=== PATIENT | female | born 1945 | race Caucasian/White ===

== ENCOUNTER 2018-10-08 15:32 | Inpatient (IN) | payer OTHER, MEDICARE ==
--- NOTE | 2018-10-08 15:41 | EDPHY ---
H & P Time Seen by Provider: 10/08/18 15:38 HPI/ROS: Chief complaint. Nausea vomiting diarrhea, abdominal pain HPI. Patient is 73-year-old female here by EMS with 9 day history of diarrhea. Decreased appetite. He many episodes of diarrhea daily not containing blood. Vomiting x1 over the 9 days. She had not had recent antibiotics. No recent travel or sick contacts. She has bilateral crampy low abdominal pain. No fever , chest pain, shortness of breath. Decreased urination. In April she was seen in a hospital in [place] and she was told she had a growth in her abdomen but does not know what was or whether it required follow-up for further evaluation. ROS 10 systems were reviewed and negative with the exception of the elements mentioned in the history of present illness Past Medical/Surgical History: Hysterectomy, knee surgery, depression, anxiety Social History: Single, nonsmoker, no alcohol Physical Exam: General Appearance: Alert well-developed female mild distress vital signs are stable Eyes: Pupils equal and round no pallor or injection. ENT, Mouth: Mucous membranes are dry. Respiratory: There are no retractions, lungs are clear to auscultation. Cardiovascular: Regular rate and rhythm. Gastrointestinal: Abdomen is soft is tender in both lower quadrants. No masses. Normal bowel sounds Neurological: Awake and alert, sensory and motor exams grossly normal. Skin: Warm and dry, no rashes. Musculoskeletal: Neck is supple nontender. Extremities symmetrical, full range of motion. Psychiatric: Patient is oriented X 3, there is no agitation. Constitutional: Initial Vital Signs Temperature (C) 36.6 C 10/08/18 15:40 Heart Rate 63 10/08/18 15:40 Respiratory Rate 18 10/08/18 15:40 Blood Pressure 110/68 10/08/18 15:40 O2 Sat (%) 97 10/08/18 15:40 O2 Delivery Mode Room Air Allergies/Adverse Reactions: No Known Allergies Allergy (Unverified 10/08/18 15:40) Medical Decision Making - Diagnostics Imaging Results: Imaging Impressions Abdomen/Pelvis CT 10/08/18 16:01 Impression: 1. Cecal and hepatic flexure focal thickening are noted and could represent occult malignancy. Has this patient had recent colonoscopy? 2. Edematous fat around the rectosigmoid junction raises the possibility of colitis. There is no evidence for colon obstruction. 3. Diverticulosis without evidence of diverticulitis. 4. Unusual density adjacent to a right upper quadrant cholecystectomy clip, likely of no clinical significance. Results discussed with Dr. Shaka Weaver. General information for patients regarding this examination can be found at [email or web address]. If you have questions or comments about this report, please contact me at [phone] (hospital) or [phone] (cell). Procedures: IV normal saline ED Course/Re-evaluation: Re-evaluation at 6:10 p.m. Patient is stable. She and I discussed laboratory evaluation imaging studies. We discussed treatment plan including recommendation for admission. She expresses understanding and agreement. Patient tells me she has never had a colonoscopy. She is not aware she has had any kidney problems in the past. Differential Diagnosis: Acute renal failure after diarrhea. Unknown baseline status as this is her 1st visit. CT worrisome for colon cancer. No previous colonoscopy - Data Points Laboratory Results: Laboratory Results 10/08/18 16:18 12 16:18 10/08/18 10/08/18 16:18 16:18 WBC 13.92 10^3/uL H 10^3/uL (3.80-9.50) RBC 5.01 10^6/uL 10^6/uL (4.18-5.33) Hgb 15.1 g/dL g/dL (12.6-16.3) Hct 44.8 % % (38.0-47.0) MCV 89.4 fL fL (81.5-99.8) MCH 30.1 pg pg (27.9-34.1) MCHC 33.7 g/dL g/dL (32.4-36.7) RDW 14.5 % % (11.5-15.2) Plt Count 341 10^3/uL 10^3/uL (150-400) MPV 10.7 fL fL (8.7-11.7) Neut % (Auto) 62.6 % % (39.3-74.2) Lymph % (Auto) 30.2 % % (15.0-45.0) [place] % (Auto) 5.9 % % (4.5-13.0) Eos % (Auto) 0.3 % L % (0.6-7.6) Baso % (Auto) 0.4 % % (0.3-1.7) Nucleat RBC Rel Count 0.0 % % (0.0-0.2) Absolute Neuts (auto) 8.71 10^3/uL H 10^3/uL (1.70-6.50) Absolute Lymphs (auto) 4.20 10^3/uL H 10^3/uL (1.00-3.00) Absolute Monos (auto) 0.82 10^3/uL H 10^3/uL (0.30-0.80) Absolute Eos (auto) 0.04 10^3/uL 10^3/uL (0.03-0.40) Absolute Basos (auto) 0.06 10^3/uL 10^3/uL (0.02-0.10) Absolute Nucleated RBC 0.00 10^3/uL 10^3/uL (0-0.01) Immature Gran % 0.6 % % (0.0-1.1) Immature Gran # 0.09 10^3/uL 10^3/uL (0.00-0.10) Sodium 134 mEq/L L mEq/L (135-145) Potassium 5.4 mEq/L H mEq/L (3.5-5.2) Chloride 102 mEq/L mEq/L (97-110) Carbon Dioxide 14 mEq/l L mEq/l (22-31) Anion Gap 18 mEq/L H mEq/L (6-14) BUN 47 mg/dL H mg/dL (7-23) Creatinine 3.8 mg/dL H mg/dL (0.6-1.0) Estimated GFR 12 Glucose 104 mg/dL H mg/dL (70-100) Calcium 9.7 mg/dL mg/dL (8.5-10.4) Total Bilirubin 0.5 mg/dL mg/dL (0.1-1.4) Conjugated Bilirubin 0.2 mg/dL mg/dL (0.0-0.5) Unconjugated Bilirubin 0.3 mg/dL mg/dL (0.0-1.1) AST 14 IU/L IU/L (14-46) ALT 23 IU/L IU/L (9-52) Alkaline Phosphatase 101 IU/L IU/L (38-126) Total Protein 8.1 g/dL g/dL (6.3-8.2) Albumin 4.6 g/dL g/dL (3.5-5.0) Medications Given: Discontinued Medications Sodium Chloride (Ns) 1,000 mls @ 0 mls/hr IV EDNOW ONE; Wide Open PRN Reason: Protocol Stop: 10/08/18 16:02 Last Admin: 10/08/18 16:16 Dose: 1,000 mls Departure - Departure Disposition: [facility] In[facility] Acute Clinical Impression: Renal failure Qualifiers: Renal failure chronicity: unspecified chronicity Qualified Code(s): N19 - Unspecified kidney failure Condition: Fair Referrals: Patient,NotPresent [Unknown] - As per Instructions
[2018-10-08] MEDS ORDERED: NS 1,000 ML IV ONE ×2 (16:01→17:00)
[2018-10-08 16:41] LABS: PLATELET COUNT 341 10^3/uL (150-400)
--- NOTE | 2018-10-08 18:40 | PDGENHP ---
History and Physical - Chief Complaint Diarrhea - History of Present Illness This is a 73-year-old female moved [place] 6 weeks ago who presents to the emergency department with 9 days of diarrhea. She states she is having bowel movements every 2 hr. She denies any blood in her stool. She denies any emesis. She has had some subjective weight loss. Appetite is described as very poor. History Information - Allergies/Home Medication List Allergies/Adverse Reactions: No Known Allergies Allergy (Unverified 10/08/18 15:40) Home Medications: Aspirin [Aspirin 325 mg (*)] 325 mg PO DAILY 10/08/18 [Last Taken 10/01/18] DULoxetine [Cymbalta 30 MG (*)] 30 mg PO DAILY 10/08/18 [Last Taken 10/08/18] traZODone [traZODONE 100MG (*)] 100 mg PO HS 10/08/18 [Last Taken 09/17/18] I have personally reviewed and updated: family history, medical history, social history, surgical history - Past Medical History no pertinent PMH - Surgical History Additional surgical history: Partial hysterectomy - Family History Additional family history: Father had colon cancer in his 60s of coronary artery disease. Mother had metastatic breast cancer - Social History Smoking Status: Light smoker Alcohol Use: None Drug Use: None Review of Systems Review of Systems: ROS: 10pt was reviewed & negative except for what was stated in HPI & below Physical Exam Physical Exam: Temp Pulse Resp BP Pulse Ox 36.6 C 44 L 16 113/60 98 10/08/18 15:40 10/08/18 17:28 10/08/18 17:28 10/08/18 17:28 10/08/18 17:28 Constitutional: no apparent distress, appears nourished, not in pain Eyes: PERRL, anicteric sclera, EOMI Ears, Nose, Mouth, Throat: hearing normal, ears appear normal, no oral mucosal ulcers, other (Dry oral mucosa) Cardiovascular: regular rate and rhythym, no murmur, rub, or gallop, No edema Respiratory: no respiratory distress, no rales or rhonchi, clear to auscultation Gastrointestinal: normoactive bowel sounds, soft, non-tender abdomen, no palpable masses, No guarding, No rebound Genitourinary: no bladder fullness, no bladder tenderness Skin: warm, normal color Musculoskeletal: full muscle strength, no muscle tenderness, normal joint ROM, no joint effusions Neurologic: AAOx3, CN II-XII Intact, No facial droop Psychiatric: interacting appropriately, not encephalopathic, thought process linear, other (Tearful) Lymph, Heme, Immunologic: no cervical LAD, no supraclavicular LAD Lab Data & Imaging Review 10/08/18 16:18 10/08/18 16:18 WBC 13.92 10^3/uL (3.80-9.50) H 10/08/18 16:18 RBC 5.01 10^6/uL (4.18-5.33) 10/08/18 16:18 Hgb 15.1 g/dL (12.6-16.3) 10/08/18 16:18 Hct 44.8 % (38.0-47.0) 10/08/18 16:18 MCV 89.4 fL (81.5-99.8) 10/08/18 16:18 MCH 30.1 pg (27.9-34.1) 10/08/18 16:18 MCHC 33.7 g/dL (32.4-36.7) 10/08/18 16:18 RDW 14.5 % (11.5-15.2) 10/08/18 16:18 Plt Count 341 10^3/uL (150-400) 10/08/18 16:18 MPV 10.7 fL (8.7-11.7) 10/08/18 16:18 Neut % (Auto) 62.6 % (39.3-74.2) 10/08/18 16:18 Lymph % (Auto) 30.2 % (15.0-45.0) 10/08/18 16:18 [place] % (Auto) 5.9 % (4.5-13.0) 10/08/18 16:18 Eos % (Auto) 0.3 % (0.6-7.6) L 10/08/18 16:18 Baso % (Auto) 0.4 % (0.3-1.7) 10/08/18 16:18 Nucleat RBC Rel Count 0.0 % (0.0-0.2) 10/08/18 16:18 Absolute Neuts (auto) 8.71 10^3/uL (1.70-6.50) H 10/08/18 16:18 Absolute Lymphs (auto) 4.20 10^3/uL (1.00-3.00) H 10/08/18 16:18 Absolute Monos (auto) 0.82 10^3/uL (0.30-0.80) H 10/08/18 16:18 Absolute Eos (auto) 0.04 10^3/uL (0.03-0.40) 10/08/18 16:18 Absolute Basos (auto) 0.06 10^3/uL (0.02-0.10) 10/08/18 16:18 Absolute Nucleated RBC 0.00 10^3/uL (0-0.01) 10/08/18 16:18 Immature Gran % 0.6 % (0.0-1.1) 10/08/18 16:18 Immature Gran # 0.09 10^3/uL (0.00-0.10) 10/08/18 16:18 Sodium 134 mEq/L (135-145) L 10/08/18 16:18 Potassium 5.4 mEq/L (3.5-5.2) H 10/08/18 16:18 Chloride 102 mEq/L (97-110) 10/08/18 16:18 Carbon Dioxide 14 mEq/l (22-31) L 10/08/18 16:18 Anion Gap 18 mEq/L (6-14) H 10/08/18 16:18 BUN 47 mg/dL (7-23) H 10/08/18 16:18 Creatinine 3.8 mg/dL (0.6-1.0) H 10/08/18 16:18 Estimated GFR 12 10/08/18 16:18 Glucose 104 mg/dL (70-100) H 10/08/18 16:18 Calcium 9.7 mg/dL (8.5-10.4) 10/08/18 16:18 Total Bilirubin 0.5 mg/dL (0.1-1.4) 10/08/18 16:18 Conjugated Bilirubin 0.2 mg/dL (0.0-0.5) 10/08/18 16:18 Unconjugated Bilirubin 0.3 mg/dL (0.0-1.1) 10/08/18 16:18 AST 14 IU/L (14-46) 10/08/18 16:18 ALT 23 IU/L (9-52) 10/08/18 16:18 Alkaline Phosphatase 101 IU/L (38-126) 10/08/18 16:18 Total Protein 8.1 g/dL (6.3-8.2) 10/08/18 16:18 Albumin 4.6 g/dL (3.5-5.0) 10/08/18 16:18 Visualized and Interpreted imaging results: Yes Interpretation: CT ABDOMEN AND PELVIS WAS REVIEWED. Impression PER RADIOLOGY: 1. Cecal and hepatic flexure focal thickening are noted and could represent occult. malignancy. Has this patient had recent colonoscopy? 2. Edematous fat around the rectosigmoid junction raises the possibility of colitis. There is no. evidence for colon obstruction. 3. Diverticulosis without evidence of diverticulitis. 4. Unusual density adjacent to a right upper quadrant cholecystectomy clip, likely of no clinical. significance. Assessment & Plan Assessment: This 73-year-old female presenting with: # [address] diarrhea with CT showing thickening of the cecum and hepatic flexure differential diagnosis includes colitis versus malignancy versus other Plan: Will consult Gastroenterology to evaluate for colonoscopy. Patient does have a family history of colon cancer and has never been screened before. # acute kidney injury Plan: Obtain urine lytes, start IV fluids, avoid nephrotoxins, and repeat metabolic panel the morning. If her renal function is not improving would consider Nephrology consultation # anion gap metabolic acidosis Plan: Will treat with IV fluids and repeat in the morning. Patient will be admitted to the hospital under inpatient status since I suspect she will require hospitalization through 2 midnights.
[2018-10-08] MEDS ORDERED: PEG 3350/NA SULF,BICARB,CL/KCL (GAVILYTE-G) 4000 ML BTL PO ONE ×2 (18:50→22:30)
[2018-10-08] MEDS ORDERED: ONDANSETRON 4 MG/2 ML VIAL IVP PRN (18:57)
[2018-10-08] MEDS ORDERED: ACETAMINOPHEN 325 MG TAB PO PRN (18:57)
[2018-10-08] MEDS ORDERED: PROMETHAZINE HCL 25 MG/ML INJ IVP PRN (18:57)
[2018-10-08] MEDS: NS 1,000 ML IV SCH (20:54)
[2018-10-08] MEDS: HEPARIN 5,000 UNIT/0.5 ML INJ SC SCH (22:36)
[2018-10-09] MEDS: NS 1,000 ML IV SCH ×3 (04:59→22:17)
[2018-10-09] MEDS: HEPARIN 5,000 UNIT/0.5 ML INJ SC SCH (05:03)
[2018-10-09 05:57] LABS: PLATELET COUNT 241 10^3/uL (150-400)
[2018-10-09] MEDS ORDERED: HYDROmorphONE/DILAUDID 1 MG/ML INJ IVP PRN (08:28)
--- NOTE | 2018-10-09 08:55 | HOSPPROG ---
Hospitalist Progress Note Assessment/Plan: 73yo generally healthy F here with 10 days of watery diarrhea found to have colonic thickening on CT. 1. Diarrhea with colonic thickening: Infection vs malignancy. - GI PCR pending - GI consulted, needs colonoscopy (has fam hx, never been screened before) 2. STAN: Improving with IVF. FENa 3.1%, suspect this is ATN in setting of significant dehydration. No casts/protein to suggest GN. - Continue IVF 3. AGMA: Resolved with fluid resuscitation. VTE ppx: SCDs Diet: NPO until procedure Dispo: Remain inpatient, unsafe to dc as unable to tolerate PO and at risk for significant dehydration. Subjective: Feeling miserable. Still having diarrhea and diffuse abd pain. No fevers, n/v. Objective: Vital Signs Temp Pulse Resp BP Pulse Ox 36.4 C 52 L 16 139/64 H 96 10/09/18 07:44 10/09/18 07:44 10/09/18 07:44 10/09/18 07:44 10/09/18 07:44 Laboratory Results 10/09/18 03:47 10/09/18 03:47 10/08/18 10/09/18 10/10/18 05:59 05:59 05:59 Intake Total 3500 Output Total 1 Balance 3499 - Physical Exam Constitutional: appears nourished, uncomfortable Eyes: PERRL, anicteric sclera, EOMI Ears, Nose, Mouth, Throat: dry mucous membranes Cardiovascular: regular rate and rhythym, no murmur, rub, or gallop, No edema Respiratory: no respiratory distress, no rales or rhonchi, clear to auscultation Gastrointestinal: normoactive bowel sounds, no palpable masses, tenderness Genitourinary: no bladder fullness, no bladder tenderness, no renal bruits Skin: no rashes or abrasions, no fluctuance, no induration Musculoskeletal: full muscle strength, no muscle tenderness, normal joint ROM Neurologic: AAOx3, sensation intact bilaterally Psychiatric: interacting appropriately, not anxious, not encephalopathic, thought process linear ICD10 Worksheet Patient Problems: Problems Problem Status Onset Renal failure Acute
--- NOTE | 2018-10-09 10:04 | PDMN ---
Medical Necessity Medical necessity: Pt meets IP criteria as of 10/08/2018 per and [facility] ( gastroenterology); est los > 2 mn for ongoing tx and management of severe diarrhea with acute renal failure and metabolic acidosis; requiring IVF, GI consult, serial labs, dietary consults, and therapies.
[2018-10-09] MEDS: LORazepam 0.5 MG TAB PO PRN ×2 (10:43→22:21)
[2018-10-09] MEDS: oxyCODONE IR 5 MG TAB PO PRN (14:21)
--- NOTE | 2018-10-09 14:30 | ASMTCMCOM ---
CM Note CM Note Notes: Patient plan of care reviewed in rounds. 73 year old female admitted with c/o 9 days of diarrhea and inability to eat.Colonic thickening on CT to be further evaluated to r/o malignancy vs infectious process. Moved to [place] 6 weeks ago and is normally independent, CM to follow for needs . Plan: TBD Date Signed: 10/09/2018 02:29 PM Electronically Signed By:Niki Bernard RN
--- NOTE | 2018-10-09 18:34 | GCON ---
DATE OF CONSULTATION: 10/09/2018 CHIEF COMPLAINT: Diarrhea. HPI: I am asked to see this patient in consultation by Dr. Copeland for chief complaint of diarrhea. Rebecca alvarez is a 73-year-old who 10 days ago had acute onset of abdominal pain with diarrhea going every 2 hours. She states this is new for her and generally does not have issues with diarrhea. There has been maybe some bright red blood but only recently. She states she notes it is on the tissue paper. No fevers or chills. No recent travel or antibiotics. No sick contacts. She has never had a colon oscopy. However, father did of colon cancer in his 60s. She also has noted some progressive cholo ght loss. ALLERGIES: No known allergies. MEDICATIONS ON ADMISSION: Cymbalta, trazodone, and aspirin. PAST MEDICAL HISTORY: She is status post hysterectomy. She has issues with depression and anxiety. SOCIAL HISTORY: Denies alcohol use. FAMILY HISTORY: Notable for colon cancer in her father in his 60s. REVIEW OF SYSTEMS: I performed a complete review of systems which is negative except for the pertine nt positives, negatives noted above in the HPI. PHYSICAL EXAM: VITAL SIGNS: Afebrile at 36.4, BP 139/64, pulse 52. CONSTITUTIONAL: She is alert and oriented. EYES: No scleral icterus. HEENT: No oral lesions. CARDIOVASCULAR: Regular rhythm. CHES T: Clear to auscultation. ABDOMEN: Soft, nontender. NEUROLOGIC: No focal lesions. SKIN: No eileen hes. LABORATORY DATA: The patient had acute renal failure on presentation with a BUN and creatinine of 47 and 3.8, is now improved to 42 and 2.1. Potassium normal at 4.8. LFTs were normal on admission. H ematocrit today is 37.3 with a hemoglobin of 12.1, white count 11, and platelets 241. CT scan of the abdomen shows thickening to the cecum and hepatic flexure, which is focal, possibly could represent occult malignancy. There is some edematous fat around the rectosigmoid which could suggest colitis. She has diverticulosis without evidence of diverticulitis. ASSESSMENT: Acute onset of abdominal pain and diarrhea associated with weight loss and abnormal CT s can. Differential diagnosis would include infectious etiology. This could be supported by elevated WBC. However, given CT scan findings, this could also be concerning for possible colon cancer. The patient would be at increased risk because of her father and has never had a colonoscopy. I discusse d this with the hospitalist. I do agree that it would be of value to do a colonoscopy to rule out un derlying malignancy. However, patient has been unable to tolerate prep well and so therefore cannot do colonoscopy today. PLAN: We will check stool GI path while we are waiting to do a colonoscopy to ensure there is no ove rlying infectious cause, and if negative, then could proceed with colonoscopy potentially tomorrow if she is able to tolerate the prep. At this point, she does not have signs of obstruction. Her abdom en is soft and is passing gas and starting to pass some liquid stool. Will let her have liquids gayathri hernandez, n.p.o. for possible colonoscopy in the morning. This should be done with anesthesia given her h istory of anxiety and medication use. Thank for the consult. /[id number]/MODL
[2018-10-09] MEDS: traZODone 100 MG TAB PO SCH (20:28)
[2018-10-10] MEDS: oxyCODONE IR 5 MG TAB PO PRN ×2 (08:14→17:54)
--- NOTE | 2018-10-10 08:57 | HOSPPROG ---
Hospitalist Progress Note Assessment/Plan: 73yo generally healthy F here with 10 days of watery diarrhea found to have colonic thickening on CT. 1. Diarrhea with colonic thickening: Infection vs malignancy. - GI PCR ordered - GI consulted, plan for colonoscopy once stools clear. May need more prep, will discuss with GI 2. STAN: Resolved with IVF. Monitor electrolytes and renal function daily. 3. AGMA: Resolved with fluid resuscitation. 4. Leukocytosis: Resolved. Dehydration vs infection. 5. Anxiety: Situational and related to possibility of cancer. Will use PO ativan PRN. 6. Depression: Resume home duloxetine. VTE ppx: SCDs Diet: NPO until procedure Dispo: Remain inpatient, unsafe to dc as unable to tolerate PO and at risk for significant dehydration. Subjective: Quite anxious. Stools are clearing up but still not completely clear. Mild abdoinal pain and nausea. No fevers. Objective: Vital Signs Temp Pulse Resp BP Pulse Ox 36.4 C 68 16 148/86 H 98 10/10/18 08:00 10/10/18 08:00 10/10/18 08:00 10/10/18 08:00 10/10/18 08:00 Laboratory Results 10/10/18 04:19 10/10/18 04:19 10/09/18 10/10/18 10/11/18 05:59 05:59 05:59 Intake Total 3500 2914 Output Total 1 300 Balance 3499 2614 - Physical Exam Constitutional: no apparent distress, appears nourished, not in pain Eyes: PERRL, anicteric sclera, EOMI Ears, Nose, Mouth, Throat: moist mucous membranes, hearing normal, ears appear normal, no oral mucosal ulcers Cardiovascular: regular rate and rhythym, no murmur, rub, or gallop Respiratory: no respiratory distress, no rales or rhonchi, clear to auscultation Gastrointestinal: normoactive bowel sounds, tenderness (diffuse, mild), No no palpable masses Genitourinary: no bladder fullness, no bladder tenderness, no renal bruits Skin: no rashes or abrasions, no fluctuance, no induration Musculoskeletal: full muscle strength, no muscle tenderness, normal joint ROM Neurologic: AAOx3, sensation intact bilaterally Psychiatric: interacting appropriately, not anxious, not encephalopathic, thought process linear ICD10 Worksheet Patient Problems: Problems Problem Status Onset Renal failure Acute
[2018-10-10] MEDS ORDERED: DULoxetine 30 MG CAP PO SCH (09:00)
[2018-10-10] MEDS ORDERED: LR 1,000 ML IV SCH (09:00)
[2018-10-10] MEDS ORDERED: PEG 3350/NA SULF,BICARB,CL/KCL (GAVILYTE-G) 4000 ML BTL PO ONE (10:55)
--- NOTE | 2018-10-10 10:59 | SOAPPROG ---
SOAP Progress Note Assessment/Plan: Assessment: Abd pain Diarrhea Abnormal CT scan Stool are not clear today unable to do colonoscopy Plan: Await GI Path panel Continue with prep today Anticipate colon tomorrow 10/10/18 10:56 Subjective: CC abd pain Still with pain stool are not clear post prep Objective: Vital Signs Temp Pulse Resp BP Pulse Ox 36.4 C 68 16 148/86 H 98 10/10/18 08:00 10/10/18 08:00 10/10/18 08:00 10/10/18 08:00 10/10/18 08:00 Microbiology 10/09/18 08:10 Gastrointestinal Tract Panel (PCR) - Final Stool No Organisms Detected By Pcr Laboratory Results 10/10/18 04:19 10/10/18 04:19 10/09/18 10/10/18 10/11/18 05:59 05:59 05:59 Intake Total 3500 2914 Output Total 1 300 Balance 3499 2614 Physical Exam - Physical Exam General Appearance: alert Respiratory: lungs clear, normal breath sounds Cardiac/Chest: regular rate, rhythm Abdomen: soft (mild tenderness RLQ) ICD10 Worksheet Patient Problems: Problems Problem Status Onset Renal failure Acute
--- NOTE | 2018-10-10 13:00 | ASMTCMCOM ---
CM Note CM Note Notes: Patient plan of care reviewed in rounds. 73 year old female with STAN secondary to dehydration from GI distress. CT shows thickening. GI to evaluate for infection vs malignancy. Colonoscopy deferred as stools not yet cleared. Plan for tomoor. CM to follow for needs. Plan:TBD Date Signed: 10/10/2018 12:59 PM Electronically Signed By:Niki Bernard RN
[2018-10-10] MEDS: LORazepam 0.5 MG TAB PO PRN (13:48)
[2018-10-10] MEDS: traZODone 100 MG TAB PO SCH (20:20)
[2018-10-11] MEDS: LORazepam 0.5 MG TAB PO PRN ×2 (01:03→11:57)
[2018-10-11] MEDS ORDERED: hydrALAZINE 25 MG TAB PO PRN (08:23)
[2018-10-11] MEDS ORDERED: LR 1,000 ML IV ONE (09:22)
--- NOTE | 2018-10-11 09:26 | HOSPPROG ---
Hospitalist Progress Note Assessment/Plan: 73yo generally healthy F here with 10 days of watery diarrhea found to have colonic thickening on CT. 1. Diarrhea with colonic thickening: Infection vs malignancy. - GI PCR negative - GI consulted, plan for colonoscopy today, await results 2. STAN: Resolved with IVF. Monitor electrolytes and renal function daily. 3. AGMA: Resolved with fluid resuscitation. 4. Leukocytosis: Resolved. Dehydration vs infection. 5. Anxiety: Situational and related to possibility of cancer. Will use PO ativan PRN. 6. Depression: Resumed home duloxetine. VTE ppx: SCDs Diet: NPO until procedure Dispo: Remain inpatient, unsafe to dc as unable to tolerate PO and at risk for significant dehydration. Subjective: Anxious this AM. Having clear stools. Plan for colonoscopyt his am. Objective: Vital Signs Temp Pulse Resp BP Pulse Ox 36.8 C 87 16 164/89 H 97 10/11/18 09:19 10/11/18 09:19 10/11/18 09:19 10/11/18 09:19 10/11/18 09:19 Microbiology 10/09/18 08:10 Gastrointestinal Tract Panel (PCR) - Final Stool No Organisms Detected By Pcr Laboratory Results 10/10/18 04:19 10/11/18 08:05 10/10/18 10/11/18 10/12/18 05:59 05:59 05:59 Intake Total 2914 5150 Output Total 300 Balance 2614 5150 - Physical Exam Constitutional: no apparent distress, appears nourished, not in pain Eyes: PERRL, anicteric sclera, EOMI Ears, Nose, Mouth, Throat: moist mucous membranes, hearing normal, ears appear normal, no oral mucosal ulcers Cardiovascular: regular rate and rhythym, no murmur, rub, or gallop Respiratory: no respiratory distress, no rales or rhonchi, clear to auscultation Gastrointestinal: normoactive bowel sounds, soft, non-tender abdomen, no palpable masses Genitourinary: no bladder fullness, no bladder tenderness, no renal bruits Skin: no rashes or abrasions, no fluctuance, no induration Musculoskeletal: full muscle strength, no muscle tenderness, normal joint ROM Neurologic: AAOx3, sensation intact bilaterally Psychiatric: not encephalopathic, anxious ICD10 Worksheet Patient Problems: Problems Problem Status Onset Renal failure Acute
--- NOTE | 2018-10-11 09:48 | PDGENHP ---
History & Physical Chief Complaint: abd pain History of Present Illness: diarrhea and weight loss Relevant Physical Exam: cv rrr s1s2 nl. chest CTA. abd + bs Cardiorespiratory Assessment: [id number]
--- NOTE | 2018-10-11 09:53 | PDANEPAE ---
ANE History of Present Illness Colonoscopy ANE Past Medical History - Cardiovascular History Hx Coronary Artery / Peripheral Vascular Disease: Yes - Pulmonary History Hx Oxygen in Use at Home: No Hx Sleep Apnea: Yes Sleep Apnea Screening Result - Last Documented: Positive - Endocrine History Hx Diabetes: No - Renal History Hx Renal Disorders: Yes Renal History Comment: ARF resolved ANE Review of Systems Review of systems is: negative Review of Systems: - Exercise capacity Exercise capacity: >=4 METS ANE Patient History - Allergies Allergies/Adverse Reactions: No Known Allergies Allergy (Unverified 10/08/18 15:40) - Home Medications Home medications: home medication list seen and reviewed Home Medications: Aspirin [Aspirin 325 mg (*)] 325 mg PO DAILY 10/08/18 [Last Taken 10/01/18] DULoxetine [Cymbalta 30 MG (*)] 30 mg PO DAILY 10/08/18 [Last Taken 10/08/18] traZODone [traZODONE 100MG (*)] 100 mg PO HS 10/08/18 [Last Taken 09/17/18] - NPO status NPO Since - Liquids (Date): 10/11/18 NPO Since - Liquids (Time): 09:13 NPO Since - Solids (Date): 10/09/18 NPO Since - Solids (Time): 00:00 - Anes Hx Anes Hx: no prior problems - Smoking Hx Smoking Status: Light smoker - Alcohol Use Alcohol Use: None - Family Anes Hx Family Anes Hx: none ANE Labs/Vital Signs - Labs Result Diagrams: 10/10/18 04:19 10/11/18 08:05 - Vital Signs Vital Signs: reviewed preoperatively; see RN documention for details Blood Pressure: 164/89 Heart Rate: 87 Respiratory Rate: 16 O2 Sat (%): 97 Height: 157.48 cm Weight: 49.895 kg ANE Physical Exam - Airway Neck exam: FROM Mallampati Score: Class 1 Mouth exam: poor dentition - Pulmonary Pulmonary: no respiratory distress - Cardiovascular Cardiovascular: regular rate and rhythym - ASA Status ASA Status: III ANE Anesthesia Plan Total IV Anesthesia: Yes
[2018-10-11] MEDS ORDERED: PROPOFOL/EMULSION 500 MG/50 ML BOTTLE IV ONE (10:03)
[2018-10-11] MEDS ORDERED: LIDOCAINE 2% 100 MG/5 ML SYR ONE (10:03)
[2018-10-11] MEDS ORDERED: oxyCODONE IR 5 MG TAB PO PRN (10:16)
[2018-10-11] MEDS ORDERED: ACETAMINOPHEN 500 MG TAB PO PRN (10:16)
[2018-10-11] MEDS ORDERED: fentaNYL 100 MCG/2 ML INJ IVP PRN (10:16)
[2018-10-11] MEDS ORDERED: ALBUTEROL 3 ML DEYVIAL IH PRN (10:16)
[2018-10-11] MEDS ORDERED: NALOXONE HCL 0.4 MG/ML INJ IVP PRN (10:16)
[2018-10-11] MEDS ORDERED: HYDROCODONE/APAP 5/325 TAB PO PRN (10:16)
[2018-10-11] MEDS ORDERED: ONDANSETRON 4 MG/2 ML VIAL IVP PRN (10:16)
[2018-10-11] MEDS ORDERED: DEXAMETHASONE 4 MG/ML VIAL IVP PRN (10:16)
[2018-10-11] MEDS ORDERED: HYOSCYAMINE SULFATE 0.125 MG TAB PO PRN (10:33)
--- NOTE | 2018-10-11 10:33 | GIREPORT ---
[facility] Surgical Services - Endoscopy Department Patient Name: Shantal Camargo Procedure Date: 10/11/2018 9:45 AM Patient Type: Inpatient Attending MD/ ER Physician: Amanda Sanchez MD Procedure: Colonoscopy Indications: Generalized abdominal pain, Clinically significant diarrhea of unexplai ally origin, Family history of colon cancer in a first-degree relative, Abno rmal CT of the GI tract Providers: Amanda Sanchez MD Medicines: Monitored Anesthesia Care Complications: No immediate complications. Description of Procedure: After obtaining informed consent, the scope was passed under direct vis ion. Throughout the procedure, the patient's blood pressure, pulse, and oxyg en saturations were monitored continuously. The Colonoscope with irrigatio n channel was introduced through the anus and advanced to the terminal il eum. The colonoscopy was performed without difficulty. The patient tolerated the procedure well. The quality of the bowel preparation was adequate. The terminal ileum, ileocecal valve, appendiceal orifice, and rectum were photographed. Findings: The perianal and digital rectal examinations were normal. A few diverticula were found in the sigmoid colon. The terminal ileum appeared normal. A localized area of mildly erythematous mucosa was found in the ascendi ng colon. Biopsies were taken with a cold forceps for histology. Estimated blood loss was minimal. A 6 mm polyp was found in the transverse colon. The polyp was sessile. The polyp was removed with a cold snare. Resection and retrieval were compl ete. Estimated blood loss was minimal. Three sessile polyps were found in the descending colon. The polyps wer e 6 to 11 mm in size. These polyps were removed with a cold snare. Resectio n and retrieval were complete. Estimated blood loss was minimal. Estimated Blood Loss: Estimated blood loss was minimal. Post Op Diagnosis: - Diverticulosis in the sigmoid colon. - The examined portion of the ileum was normal. - Erythematous mucosa in the ascending colon. Biopsied. - One 6 mm polyp in the transverse colon, removed with a cold snare. Resected and retrieved. - Three 6 to 11 mm polyps in the descending colon, removed with a cold snare. Resected and retrieved. Recommendation: - Await pathology results. - Return patient to [facility] for [facility] care. - Advance diet as tolerated. - Repeat colonoscopy is recommended for surveillance. The colonoscopy d ate will be determined after pathology results from today's exam become available for review. - If polyps are adenomas then repeat colon in 3 years otherwise repeat colon in 5 years. - Recommend Levsin if needed for pain. - Will sign off. - Thank you for allowing me to participate in the care of your patient. Attending Participation: I personally performed the entire procedure. Amanda Sanchez MD Amanda Sanchez MD 10/11/2018 10:33:02 AM This report has been signed electronicallyAmanda Sanchez MD Number of Addenda: 0 Note Initiated On: 10/11/2018 9:45 AM Total Procedure Duration Time 0 hours 16 minutes 46 seconds [email or web address]
--- NOTE | 2018-10-11 10:36 | POSTANESTH ---
Post Anesthetic Evaluation Cardiovascular Status: Similar to Pre-Op Cond Respiratory Status: Similar to Pre-op Cond. Level of Consciousness/Mental Status: Can Participate in Eval, Mildly Sleepy, Arousable Pain Control: Adequate, Prn Tx Ordered Nausea/Vomiting Control: Adequate, Prn Tx Ordered Complications Possibly Related to Anesthesia: None Noted
[2018-10-11] MEDS ORDERED: LABETALOL HCL 5 MG/ML 20 ML MDV ONE (10:45)
[2018-10-11] MEDS: LABETALOL HCL 20 MG/4 ML INJ IVP PRN ×2 (10:48→11:10)
[2018-10-11] MEDS ORDERED: oxyCODONE IR 5 MG TAB ONE (10:52)
--- NOTE | 2018-10-11 13:25 | ASMTCMCOM ---
CM Note CM Note Notes: Pt has requested help in finding a PCP; her secondary insurance is [employer]. Pt moved from [place] recently and has been living with her daughter in [place]; she now resides independently at [facility]. She was given the name of the Varnish Remover, Renu, who can help her identify a PCP. CM left a message for Renu that pt required assistance with this. D/C Plan: Anticipate independent to [facility] Date Signed: 10/11/2018 01:24 PM Electronically Signed By:Cecelia Campos
[2018-10-11] MEDS: oxyCODONE IR 5 MG TAB PO PRN (15:10)
--- NOTE | 2018-10-11 16:01 | PDDCSUM ---
Discharge Summary Discharge Summary: Date of Admission: Date of Discharge: 10/11/2018 Consultants: gastroenterology (Dr Amanda Sanchez) Studies/Procedures: 1. CT abdomen 2. Colonoscopy - sessile polyps (up to 11mm in size), sigmoid diverticulosis, localized area of mild erythema in ascending colon (biopsied) Discharge Diagnoses: 1. Acute diarrhea, likely infectious colitis 2. Acute kidney injury, resolved 3. Leukocytosis, resolved 4. Anxiety, depression 5. Colonic sessile polyps Brief Hospital Course: 73yo F who recently moved to area from [place] presented with about a week of watery diarrhea and malaise. CT of her abdomen showed thickening of her cecum and ascending/transverse colon. A GI PCR was negative. She underwent a colonoscopy which did show an area of erythema in her ascending colon that was biopsied but no obvious malignancy was identified. Some sessile polyps were removed. She was tolerated PO and had minimal symptoms at time of discharge. She did have an elevated creatinine on admission consistent with STAN due to dehydration. This improved with IVF and was normal at discharge. Medications: Please refer to EMR for complete list. Prescription for zofran was sent to patient's pharmacy. Follow Up Plan: 1. Needs to establish PCP 2. Follow up finalized pathology reports for colonic polyps and area of erythema in ascending colon 3. Repeat colonoscopy based on biopsy results Physical Exam: Vitals reviewed, afebrile. Alert and oriented, RRR without m/r/g , lungs clear, abdomen soft and nontender, no rashes. Appears anxious.
[2018-10-11 16:40] VITALS: BP 121/67
--- NOTE | 2018-10-11 17:18 | ASDISCHSUM ---
Discharge Information Plan Status:Home with No Needs Medically Cleared to Leave: Discharge Date: CM D/C Disposition:Home, Routine, Self-Care ADT D/C Disposition:Home, Routine, Self-Care Projected Discharge Date: Transportation at D/C:Family Discharge Delay Reason: Follow-Up Date: Discharge Slot: Final Diagnosis: Placement Information Patient Contact Information Contact Name:NHUNG Relationship:Kamron Address: Work Phone: City:[place] Alternate Phone: State/[employer] Code:[place] Email: Financial Information Financial Class:Medicare Primary Plan Desc:MEDICARE INPATIENT Primary Plan Number:[id number] Secondary Plan Desc:MARCI/MAYNOR SUPPLEMENT Secondary Plan Number:[id number] Assessment Information LACE LACE Length of stay for Answers: 2 days current admission Acuity / Level of Answers: Yes Care: Did the patient have an inpatient admission? # of Emergency department Answers: 1-2 visits in the last 6 months Social determinants Answers: Mental health diagnosis (anxiety, depression, pers onality disorders, etc.) Score: 9 Date Signed: 10/11/2018 05:17 PM Electronically Signed By:Cecelia Campos [facility] CM Progress Note CM Note CM Note Notes: Patient plan of care reviewed in rounds. 73 year old female admitted with c/o 9 days of diarrhea and inability to eat.Colonic thickening on CT to be further evaluated to r/o malignancy vs infectious process. Moved to [place] 6 weeks ago and is normally independent, CM to follow for needs . Plan: TBD Date Signed: 10/09/2018 02:29 PM Electronically Signed By:Niki Bernard RN [facility] Progress Note CM Note CM Note Notes: Patient plan of care reviewed in rounds. 73 year old female with STAN secondary to dehydration from GI distress. CT shows thickening. GI to evaluate for infection vs malignancy. Colonoscopy deferred as stools not yet cleared. Plan for [facility]. to follow for needs. Plan:TBD Date Signed: 10/10/2018 12:59 PM Electronically Signed By:Niki Bernard RN [facility] Progress Note CM Note CM Note Notes: Pt has requested help in finding a PCP; her secondary insurance is [employer]. Pt moved from [place] recently and has been living with her daughter in [place]; she now resides independently at [facility]. She was given the name of the Manager State, Renu, who can help her identify a PCP. left a message for Renu that pt required assistance with this. D/C Plan: Anticipate independent to [facility] Date Signed: 10/11/2018 01:24 PM Electronically Signed By:Cecelia Campos Intervention Information
== END 2018-10-11 18:00 | disposition home or self-care (01) | DRG 392 ==
LOC: EDUNIT# → F1N 21:00
PROVIDERS: ADMIT Family Medicine; ATTEND Family Medicine
DX: A09 Infectious gastroenteritis and colitis, unspecified (principal); N17.9 Acute kidney failure, unspecified; F41.8 Other specified anxiety disorders; E86.0 Dehydration; K57.30 Diverticulosis of large intestine without perforation or abscess without bleeding; K63.5 Polyp of colon; Z72.0 Tobacco use
CPT/HCPCS: 96374; 97161-GP; 97165-GO; G8978-GP-CH; G8979-GP-CH; G8980-GP-CH; G8987-GO-CI; G8988-GO-CI; G8989-GO-CI; J1170; J1644; J2001; J2270; J2704

== ENCOUNTER 2018-10-18 09:15 | Inpatient (IN) | payer OTHER, MEDICARE ==
--- NOTE | 2018-10-18 09:22 | EDPHY ---
H & P Time Seen by Provider: 10/18/18 09:17 HPI/ROS: CHIEF COMPLAINT: "I still have diarrhea" HISTORY OF PRESENT ILLNESS: 73-year-old female arrives via ambulance from her residence at [facility]. Patient was admitted to the hospital discharge few days ago for complaints of diarrhea, phone have acute kidney injury. At That time she also had GI PCR which was negative, colonoscopy showed an area of erythema in her ascending colon that was biopsied with no obvious malignancy. Returns to the ER stating that every time she eats she has to go to the bathroom has extensive watery diarrhea. No abdominal pain. No fever no chills. No back or flank pain. No melena or hematochezia. No myalgias. Patient also reports that approximately 1:00 a.m. Today she hit her head, states that she felt dizzy and had syncopal episode. No prolonged periods of mobility on the floor. No seizure. No alcohol or drug use. PRIMARY CARE PROVIDER: REVIEW OF SYSTEMS: 10 systems reviewed and negative with the exception of the elements mentioned in the history of present illness PAST MEDICAL & SURGICAL HISTORY: Recent hospital admission for diarrhea and acute kidney injury. Depression. Anxiety. SOCIAL HISTORY: Lives at [facility] PHYSICAL EXAM (Prior to examination, patient consented to physical exam, hands were washed and my usual and customary physical exam procedures followed) 1) GENERAL: Well-developed, well-nourished, alert and oriented. Appears to be in no acute distress. 2) HEAD: Normocephalic, left frontal hematoma, 1 cm laceration which is hemostatic 3) HEENT: Pupils equal, round, reactive to light bilaterally. Sclera anicteric. No raccoon eyes. No Whitlock sign. Nasopharynx, oropharynx, clear, no lesions. Dry mucous membranes. No rhinorrhea. No otorrhea. No hemotympanum. No fluid or blood in the external auditory canal Ears bilaterally with normal tympanic membranes. 4) NECK: Full range of motion, no meningeal signs. No midline C-spine pain. Full range of motion which does not elicit midline pain or peripheral paresthesia, weakness, numbness 5) LUNGS: Clear auscultation bilaterally, no wheezes, no rhonchi, no retractions. 6) HEART: Regular rate and rhythm, no murmur, no heave, no gallop. 7) ABDOMEN: No guarding, no rebound, no focal tenderness, negative McBurney's, negative Yuan's, negative Rovsing's, negative peritoneal sign, 8) MUSCULOSKELETAL: Moving all extremities, no focal areas of tenderness, no obvious trauma. No peripheral edema or discoloration. 9) BACK: No CVA tenderness, no midline vertebral tenderness, no fluctuance, no step-off, no obvious trauma, no visual or palpable abnormality. 10) SKIN: No rash, no petechiae. 11) Psychiatric: Patient is oriented X 3, there is no agitation. DIFFERENTIAL DIAGNOSIS: In no particular including but not limited to acute kidney injury, volume depletion, infectious diarrhea, functional diarrhea - Medical/Surgical History Hx Asthma: No Hx Chronic Respiratory Disease: No Hx Diabetes: No Hx Cardiac Disease: No Hx Renal Disease: No Hx Cirrhosis: No Hx Alcoholism: No Hx HIV/AIDS: No Hx Splenectomy or Spleen Trauma: No Other PMH: Hysterectomy, knee Sx, depression, anxiety - Social History Smoking Status: Light smoker Constitutional: Initial Vital Signs Temperature (C) 36.6 C 10/18/18 09:20 Heart Rate 54 L 10/18/18 09:20 Respiratory Rate 16 10/18/18 09:20 Blood Pressure 123/65 H 10/18/18 09:20 O2 Sat (%) 94 10/18/18 09:20 O2 Delivery Mode Room Air Allergies/Adverse Reactions: No Known Allergies Allergy (Unverified 10/08/18 15:40) Home Medications: Medication Instructions Recorded Aspirin [Aspirin 325 mg (*)] 325 mg PO DAILY 10/08/18 DULoxetine [Cymbalta 30 MG (*)] 30 mg PO DAILY 10/08/18 traZODone [traZODONE 100MG (*)] 100 mg PO HS 10/08/18 Ondansetron Odt [Zofran Odt 4 mg 4 mg PO Q6H PRN #20 tab 10/11/18 (*)] Medical Decision Making - Diagnostics Imaging Results: CT scan negative per Radiology interpretation with Images reviewed myself ED Course/Re-evaluation: Re-evaluation with serial exams. Case discussed Dr. Viktor Zavala in the ER. I reviewed her old medical records showing him negative GI PCR at last admission. Doubt acute surgical abdominal pathology at this time. Will plan on hydration, checking laboratory studies. Head CT ordered in this patient for trauma for the following indication: Greater than 65 years old. 10:19 a.m.: Creatinine elevated 3.1 up from level of 0.8 few days ago. Will plan on readmission 10:41 a.m.: Consultation Dr. José Miguel Wilde who will admit patient for acute kidney injury - Data Points Laboratory Results: Laboratory Results 10/18/18 09:35 10/18/18 09:35 Medications Given: Duloxetine HCl (Cymbalta) 30 mg PO DAILY KIMBERLY Stop: 04/17/19 08:59 Last Admin: 10/19/18 08:42 Dose: 30 mg Hydromorphone HCl (Dilaudid) 0.2 mg IVP Q4HRS PRN PRN Reason: Pain, Severe Unable to Take PO Stop: 10/28/18 14:38 Last Admin: 10/19/18 08:59 Dose: 0.2 mg Hyoscyamine Sulfate (Levsin, Hyomax-Sl) 0.125 mg PO Q6HRS PRN PRN Reason: Pain, Breakthrough Stop: 04/16/19 14:00 Last Admin: 10/18/18 14:33 Dose: 0.125 mg Lactated Ringer's (Lr) 1,000 mls @ 75 mls/hr IV CONT KIMBERLY Stop: 04/17/19 06:29 Last Admin: 10/19/18 06:38 Dose: 1,000 mls Loperamide HCl ( Imodium) 2 mg PO QID PRN PRN Reason: Diarrhea/Loose Stools Stop: 04/16/19 13:55 Last Admin: 10/18/18 14:31 Dose: 2 mg Miscellaneous Information (Patch Removal) 1 ea TD DAILY21 KIMBERLY Stop: 04/16/19 20:59 Last Admin: 10/18/18 20:29 Dose: 1 ea Miscellaneous Medication (Icy Hot Lidocaine/Menthol 4%/1% Patch) 1 patch TD DAILY KIMBERLY Stop: 04/16/19 13:44 Last Admin: 10/19/18 08:42 Dose: 1 patch Trazodone HCl (Trazodone) 100 mg PO HS KIMBERLY Stop: 04/16/19 20:59 Last Admin: 10/18/18 20:28 Dose: 100 mg Discontinued Medications Sodium Chloride (Ns) 1,000 mls @ 0 mls/hr IV ONCE ONE; Wide Open PRN Reason: Protocol Stop: 10/18/18 11:16 Last Admin: 10/18/18 11:15 Dose: 1,000 mls Sodium Chloride (Ns) 1,000 mls @ 100 mls/hr IV CONT KIMBERLY Stop: 04/16/19 12:44 Last Admin: 10/19/18 01:29 Dose: 1,000 mls Sodium Chloride (Ns) 1,000 mls @ 3,000 mls/hr IV ONCE ONE Stop: 10/18/18 14:57 Last Admin: 10/18/18 15:28 Dose: 1,000 mls Point of Care Test Results: Chemistry 10/18/18 09:51 POC Troponin I 0.01 ng/mL ng/mL (0.00-0.08) Departure - Departure Disposition: [place] Inpatient Acute Clinical Impression: Acute kidney injury Diarrhea Qualifiers: Diarrhea type: unspecified type Qualified Code(s): R19.7 - Diarrhea, unspecified Condition: Fair
[2018-10-18 09:55] LABS: PLATELET COUNT 305 10^3/uL (150-400)
[2018-10-18] MEDS ORDERED: NS 1,000 ML IV ONE ×2 (11:15→14:38)
[2018-10-18] MEDS ORDERED: ACETAMINOPHEN 325 MG TAB PO PRN (12:35)
[2018-10-18] MEDS ORDERED: ONDANSETRON DISINTEGRATING 4 MG TAB PO PRN (12:35)
[2018-10-18] MEDS ORDERED: ONDANSETRON 4 MG/2 ML VIAL IVP PRN (12:35)
[2018-10-18] MEDS: NS 1,000 ML IV SCH (13:30)
[2018-10-18] MEDS ORDERED: LOPERAMIDE HCL 2 MG CAP PO PRN (13:56)
[2018-10-18] MEDS ORDERED: HYOSCYAMINE SULFATE 0.125 MG TAB PO PRN (14:01)
--- NOTE | 2018-10-18 14:14 | PDGENHP ---
History and Physical - Chief Complaint Diarrhea, abdominal pain - History of Present Illness 73 y/o female continues to have abdominal pain and diarrhea. She was recently admitted to the hospital for 9 days worth of diarrhea and STAN. A full GI work-up was performed (GI PCR, Ab/pelvis CT, colonoscopy) and was unremarkable and did not provide a definitive reason for her continued diarrhea. Imaging revealed possible colitis and diverticulosis without evidence of diverticulitis. She had a few polyps removed and she will need to have a repeat surveillance colonoscopy in three years. At the time of her admittance, she was also STAN secondary to hypovolemia. She was given IVF and renal function improved at time of discharge. She was discharged with Zofran PRN. She now presents with the exact complaint she had during her previous admission. She reports feeling "a little better, not as much diarrhea" at time of discharge but the diarrhea has now continued "every time I try to eat something." The last meal she had was on Sunday and it was vegetable soup. Denies hematochezia, dysuria, hematuria. Also, this morning as she awoke and had to go to the bathroom, she jumped out of bed and felt lightheaded. No syncopal event, no LOC. She continued to try and make it to the bathroom while being lightheaded but she thinks she tripped on a shoe which caused her to fall and hit her head on a door knob. She admits to only drinking 32 ounces of water total for the day and one cup of coffee. She normally doesn't eat that much but will eat dinner; since her abdominal pain and diarrhea has occurred, she hasn't had much of an appetite for anything. For her back pain, she normally takes ibuprofen 400 mg QD for a week and then stops. This occurs every month and has She is being admitted for further diagnostic work-up of her abdominal pain, diarrhea, and STAN. Past Medical/Surgical History 1. Depression 2. Anxiety 3. Chronic back pain 4. Hysterectomy 5. Knee surgery Social 1. Recently moved from [place], [place] to be closer to her family. She lives independently at [facility]. 2. Denies alcohol or illicit drug use. Smokes approximately 4 cigarettes/day. 3. 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 Vitals 126/57 46 HR 16 Respirations 36.4c 96% History Information - Allergies/Home Medication List Allergies/Adverse Reactions: No Known Allergies Allergy (Unverified 10/08/18 15:40) Home Medications: Aspirin [Aspirin 325 mg (*)] 325 mg PO DAILY 10/08/18 [Last Taken 10/17/18] DULoxetine [Cymbalta 30 MG (*)] 30 mg PO DAILY 10/08/18 [Last Taken 10/17/18] traZODone [traZODONE 100MG (*)] 100 mg PO HS 10/08/18 [Last Taken 10/17/18] I have personally reviewed and updated: family history, medical history, social history, surgical history Past Medical History: See HPI List - Surgical History Additional surgical history: Partial hysterectomy - Family History Additional family history: Father had colon cancer in his 60s of coronary artery disease. Mother had metastatic breast cancer - Social History Smoking Status: Current some day smoker Alcohol Use: None Drug Use: None Review of Systems Review of Systems: ROS: 10pt was reviewed & negative except for what was stated in HPI & below Constitutional: Reports: malaise, recent injury, recent illness EENMT: Reports: no symptoms Cardiac: Reports: no symptoms Respiratory: Reports: no symptoms Gastrointestinal: Reports: abdominal pain, diarrhea Genitourinary: Reports: no symptoms Muscolosketal: Reports: back pain Skin: Reports: lumps (L side of forehead from mechanical injury) Neurological: Reports: anxiety Hematologic/Lymphatic: Reports: no symptoms Immunologic/Allergy: Reports: no symptoms Physical Exam Physical Exam: Lab data and imaging reviewed EKG: Sinus harlan CXR: No acute processes Head CT: no acute intracranial processes WBC: 13.17 RBC: 4.97 Hgb/Hct: 14.9/43.9 Na: 133 K: 5.3 Anion Gap: 19 BUN/Creatinine: 32/3.1 Temp Pulse Resp BP Pulse Ox 36.4 C 46 L 16 126/57 H 96 10/18/18 12:00 10/18/18 12:00 10/18/18 12:00 10/18/18 12:00 10/18/18 12:00 Constitutional: no apparent distress, appears nourished, not in pain Eyes: PERRL, anicteric sclera, EOMI Ears, Nose, Mouth, Throat: hearing normal, ears appear normal, dry mucous membranes Cardiovascular: regular rate and rhythym, no murmur, rub, or gallop, bradycardia , No edema Peripheral Pulses: 2+: dorsalis-pedis (R) (Radial 2+), dorsalis-pedis (L) ( Radial 2+) Respiratory: no respiratory distress, no rales or rhonchi, clear to auscultation Gastrointestinal: normoactive bowel sounds, tenderness (RLQ/LLQ) Genitourinary: no bladder fullness, no bladder tenderness Skin: abrasion (L forehead) Musculoskeletal: full muscle strength, no muscle tenderness, normal joint ROM, no joint effusions Neurologic: AAOx3, sensation intact bilaterally, CN II-XII Intact Psychiatric: interacting appropriately, not encephalopathic, thought process linear, anxious Lymph, Heme, Immunologic: no cervical LAD, no supraclavicular LAD Lab Data & Imaging Review 10/18/18 09:35 10/18/18 09:35 WBC 13.17 10^3/uL (3.80-9.50) H 10/18/18 09:35 RBC 4.97 10^6/uL (4.18-5.33) 10/18/18 09:35 Hgb 14.9 g/dL (12.6-16.3) 10/18/18 09:35 Hct 43.9 % (38.0-47.0) 10/18/18 09:35 MCV 88.3 fL (81.5-99.8) 10/18/18 09:35 MCH 30.0 pg (27.9-34.1) 10/18/18 09:35 MCHC 33.9 g/dL (32.4-36.7) 10/18/18 09:35 RDW 14.9 % (11.5-15.2) 10/18/18 09:35 Plt Count 305 10^3/uL (150-400) 10/18/18 09:35 MPV 10.8 fL (8.7-11.7) 10/18/18 09:35 Neut % (Auto) 71.6 % (39.3-74.2) 10/18/18 09:35 Lymph % (Auto) 20.3 % (15.0-45.0) 10/18/18 09:35 Oliver % (Auto) 6.8 % (4.5-13.0) 10/18/18 09:35 Eos % (Auto) 0.2 % (0.6-7.6) L 10/18/18 09:35 Baso % (Auto) 0.4 % (0.3-1.7) 10/18/18 09:35 Nucleat RBC Rel Count 0.0 % (0.0-0.2) 10/18/18 09:35 Absolute Neuts (auto) 9.44 10^3/uL (1.70-6.50) H 10/18/18 09:35 Absolute Lymphs (auto) 2.68 10^3/uL (1.00-3.00) 10/18/18 09:35 Absolute Monos (auto) 0.89 10^3/uL (0.30-0.80) H 10/18/18 09:35 Absolute Eos (auto) 0.02 10^3/uL (0.03-0.40) L 10/18/18 09:35 Absolute Basos (auto) 0.05 10^3/uL (0.02-0.10) 10/18/18 09:35 Absolute Nucleated RBC 0.00 10^3/uL (0-0.01) 10/18/18 09:35 Immature Gran % 0.7 % (0.0-1.1) 10/18/18 09:35 Immature Gran # 0.09 10^3/uL (0.00-0.10) 10/18/18 09:35 Sodium 133 mEq/L (135-145) L 10/18/18 09:35 Potassium 5.3 mEq/L (3.5-5.2) H 10/18/18 09:35 Chloride 97 mEq/L (97-110) 10/18/18 09:35 Carbon Dioxide 17 mEq/l (22-31) L 10/18/18 09:35 Anion Gap 19 mEq/L (6-14) H 10/18/18 09:35 BUN 32 mg/dL (7-23) H 10/18/18 09:35 Creatinine 3.1 mg/dL (0.6-1.0) H 10/18/18 09:35 Estimated GFR 15 10/18/18 09:35 Glucose 104 mg/dL (70-100) H 10/18/18 09:35 Calcium 9.7 mg/dL (8.5-10.4) 10/18/18 09:35 Total Bilirubin 0.7 mg/dL (0.1-1.4) 10/18/18 09:35 Conjugated Bilirubin 0.5 mg/dL (0.0-0.5) 10/18/18 09:35 Unconjugated Bilirubin 0.2 mg/dL (0.0-1.1) 10/18/18 09:35 AST 21 IU/L (14-46) 10/18/18 09:35 ALT 24 IU/L (9-52) 10/18/18 09:35 Alkaline Phosphatase 108 IU/L (38-126) 10/18/18 09:35 POC Troponin I 0.01 ng/mL (0.00-0.08) 10/18/18 09:51 Total Protein 8.5 g/dL (6.3-8.2) H 10/18/18 09:35 Albumin 5.0 g/dL (3.5-5.0) 10/18/18 09:35 Lipase 145 IU/L (23-300) 10/18/18 09:35 Assessment & Plan Plan: 73 y/o female presents with ongoing diarrhea and STAN. 1. STAN secondary to hypovolemia: this is most likely caused from diarrhea and poor PO intake -Received 1L NS in ED. Will receive 1L bolus NS and maintenance IVF -Avoid nephrotoxic medications -Encourage fluids CBC/CMP recheck tomorrow 2. Diarrhea: etiology still unclear -GI consulted; Dr. Marquez aware and will evaluate the pt tomorrow -Imodium PO -IVF 3. Abdominal pain -Dilaudid IVP PRN -Hyoscyamine PO PRN -Anti-emetics PRN 4. Anion Gap Metabolic acidosis -Hyponatremic and hyperkalemic secondary to hypovolemia (dehydration): repeat potassium at 1700 today after receiving fluids. Recheck CBC/CMP tomorrow. 5. Tobacco cessation -Counseled pt on tobacco cessation 6. Forehead abrasion: recommend Tylenol if headache occurs and ice pack PRN. Diet: Regular VTE ppx: SCDs Code: Full Dispo: Admit to inpatient
[2018-10-18] MEDS: LIDOCAINE 4%/MENTHOL 1% PATCH TD SCH (14:33)
--- NOTE | 2018-10-18 14:41 | HOSPPROG ---
Hospitalist Progress Note Assessment/Plan: Patient seen and evaluated. She appears very uncomfortable. Abd soft but TTP diffusely. Discussed with Kin North - I agree with her note. Treating for colitis - nothing significant on pathology from colonoscopy. Plan: - IVF, no nephrotoxins - recheck K in a few hours - Imodium; GI consult Objective: Vital Signs Temp Pulse Resp BP Pulse Ox 36.4 C 46 L 16 126/57 H 96 10/18/18 12:00 10/18/18 12:00 10/18/18 12:00 10/18/18 12:00 10/18/18 12:00 ICD10 Worksheet Patient Problems: Problems Problem Status Onset Acute kidney injury Acute Diarrhea Acute Renal failure Acute
[2018-10-18] MEDS: HYDROmorphONE/DILAUDID 1 MG/ML INJ IVP PRN ×2 (15:31→20:28)
--- NOTE | 2018-10-18 15:57 | ASMTCMCOM ---
CM Note CM Note Notes: Spoke w/RN, pt lives at [facility]. She admits to the hospital for continued diarrhea, GI consult tomorrow. PT cleared her for home anticipate she will dc home when medically stable. DC Plan: Independent Date Signed: 10/18/2018 03:56 PM Electronically Signed By:Anjali Friedman RN
--- NOTE | 2018-10-18 16:51 | PDMN ---
Medical Necessity Medical necessity: [facility] M565 IBD: 73 yo w/ primary c/o abd pain and diarrhea w/ recent hospitalization for same s/sx. Pt shown to have STAN (creat 3.1 - on d/c last hospitalization creat 0.8) secondary hypovolemia likely r/t diarrhea and poor po intake. Pt is hyponatremic and hyperkalemic (5.3) secondary hypovolemia. IVF ongoing and IV dilaudid for pain management. Serial labs ordered for electrolyte monitoring. Cont tele monitoring ordered. GI consult pending. Medical management expected to cont for >2MN for tx of colitis. Meets [facility] IP criteria for IBD w/ failure of OP tx, severe electrolyte imbalance (K>5 + creat >2.5), and renal fx w/ 3-fold rise in serum creat from baseline.
--- NOTE | 2018-10-18 18:56 | GCON ---
DATE OF CONSULTATION: 10/18/2018 REFERRING PHYSICIAN: Maco Wilde MD REASON FOR CONSULTATION: This is for diarrhea. Dear Dr. Wilde: Thank you very kindly for asking me to evaluate the patient for severe diarrhea. She was recently ad mitted to the hospital on October 08 for severe diarrhea. A consultation by our service was perfo rmottoniel at that time. As part of her evaluation for diarrhea, she had a CAT scan that showed some colon ic thickening at the hepatic flexure and cecum. She had never had a colonoscopy. The colonoscopy, h owever, did not show any abnormalities in these locations. The CT also showed some rectosigmoid mese nteric fat stranding. The colon was also normal in this location. Random colon biopsies were negati ve for any type of colitis. There was a little mild endoscopic erythema in the ascending colon, but it was not specific. Shantal has continued to have problems with diarrhea since discharge. She is having multiple moderat e to large volume, liquid watery bowel movements. There is urgency and crampy pain associated with i t. She denies any fever. There has been no foreign travel, well or mountain water use. She denies any new medications. She has had no sick contacts. A stool pathogen panel on her last admission was a PCR specimen and was negative. Prior to the last 2 weeks, she was not having any diarrhea. She r eports her bowel movements had been normal before this. 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 She denies any hematochezia. She has mei d no dietary changes. I am asked to assist with further evaluation and management of her diarrhea. PAST MEDICAL HISTORY: Significant for arthritis, predominantly affecting her hands and feet, anxiety , depression. PAST SURGICAL HISTORY: For hysterectomy and a remote knee surgery. MEDICATIONS: On admission include Cymbalta, trazodone 100 mg at bedtime, aspirin 325 a day. ALLERGIES: None known. SOCIAL HISTORY: The patient is a long-term resident of [place]. She was living in [place] about a year ago, but has returned to [place] to be with her grandchildren. 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 She has been spending most of her time caring for her grandchildren and again denies any acute infection in the kids. No substance abuse history. No alco holism. No tobacco abuse. FAMILY HISTORY: Negative for inflammatory bowel disease, celiac disease, or pancreatic illness. Her father has had colon cancer and coronary disease. REVIEW OF SYSTEMS: CONSTITUTIONAL: She has been dizzy and lightheaded. She feels dehydrated and th irsty. Denies any fever, night sweats. She is unclear whether she has lost any weight, but thinks s he has. HEENT: No headache. No visual disturbances. Her mouth has been dry. No neck pain. No th yroid enlargement that she has been aware of. PULMONARY: No cough or shortness of breath. CARDIOVA SCULAR: Denies chest pain or palpitations. No syncope, although she has been dizzy. GI: Diffuse, crampy, and generalized abdominal pain that occur with defecation. Profuse watery and frequent bowel movements. Denies constipation or hematochezia. No dysphagia. No heartburn. No vomiting. Denies any real appetite but no nausea. RHEUMATOLOGIC: She reports joint pain from arthritis in her hands , which has been stable. DERMATOLOGIC: No jaundice, pruritus, or hives. GENITOURINARY: No flank p ain or dysuria. Her urine has been dark and less frequent, however. GYNECOLOGIC: No vaginal discha rge or bleeding. HEMATOLOGIC: No epistaxis or bruising. NEUROLOGIC: She has had a recent fall wit h some mild injury to her left bahai. She denies any active headache, visual disturbances, paresthe brittany or focal weakness. PHYSICAL EXAM: VITAL SIGNS: Blood pressure is 92/81, her heart rate is 55, oxygenation is 95% on ro om air, temperature is 36.4. GENERAL: Thin, elderly female, alert, pleasant, able to provide her ow n history. HEENT: There is a small laceration with a bruise on her left bahai. Sclerae are anicte joão. Oropharynx is clear. Mucous membranes are dry. NECK: Supple. No carotid bruit. No jugular venous distention. No thyromegaly. PULMONARY: Clear to auscultation bilaterally. CARDIOVASCULAR: Regular rate and rhythm without murmur, rub, or gallop. GI. ABDOMEN: Soft without distention. No tenderness, rebound, or guarding. No ascites. No abdominal bruit. MUSCULOSKELETAL: There are christina e joint deformities in the hands consistent with osteoarthritis. Skin turgor is poor. Capillary ref ill is normal. There is no edema peripherally, no palmar erythema. NEUROLOGIC: Alert to person, pl tyler, and time. Speech is normal. Mood is appropriate. Normal affect. No focal motor abnormalities . LABORATORY DATA: Database includes the following: White blood count is 13.1, hematocrit is 43.9, pl atelets are 305. Sodium 133, potassium is 4.2, chloride 97, bicarbonate is 17, BUN is 32 with a crea tinine of 3.1, anion gap is 19, glucose is 104, total bilirubin is 0.7, AST is 21, ALT is 24, alkalin e phosphatase is 108, albumin is 5.0 with a total protein of 8.5, lipase is 145. Database includes a CT scan of the abdomen and pelvis that was performed on October 08, 2018. Again, this showed mild cecal and hepatic flexure fold thickening as well as some edematous fat around the rectosigmoid junct ion. The gallbladder is absent. There are surgical clips in the right upper quadrant. The pancreas is radiographically normal. There is diverticulosis of the sigmoid colon without thickening. There is no pelvic adenopathy or mesenteric abnormalities otherwise. A colonoscopy was performed by Dr. Alexander colbert on October 11, 2018. This showed some mild erythema in a focal fashion in the ascending co carmelo, a 6 mm polyp in the transverse colon, which was removed, 3 sessile polyps in the descending colo n between 6 and 11 mm that were removed with a cold snare. The ileum appeared normal; diverticulosis in the sigmoid. Random colon biopsies were taken. Histology analysis of this revealed random colon biopsies to be normal without pathologic features. The transverse colon is a tubular adenoma. The descending colon polyps are a combination of serrated adenomas and hyperplastic. Stool studies on were negative PCR stool study for pathogens. IMPRESSION: 1. Diarrhea over the last 2 weeks seems acute and not chronic. 2. Dehydration. 3. Acute renal injury, likely due to dehydration, probably secondary to the diarrhea and not eating or drinking much. 4. CT finding showing colonic thickening but a colonoscopy that does not confirm this with normal co carmelo biopsies. RECOMMENDATIONS: 1. Repeat stool PCR for pathogens including C difficile. 2. Secretory diarrhea workup should be initiated. 3. Stool for fecal fat, pancreatic elastase, and fecal alpha-1 antitrypsin to look for possibly a pr otein-losing enteropathy. 4. Celiac panel. 5. TSH. 6. Imodium for management of diarrhea in the short term. 7. IV fluid hydration. 8. Diet is as tolerated. 9. Would consider a dedicated small-bowel follow-through if her initial evaluation is unremarkable t o better interrogate the small bowel for abnormality that could be causative of diarrhea. 10. May need upper endoscopy with small bowel biopsies and gastric biopsies to exclude disorders suc h as amyloidosis in the setting of renal failure if this does not improve and the diagnosis remains e lusive. 11. In regard to the secretory diarrhea workup, this will include a chromogranin-A, a 24-hour urine for serotonin, gastrin level, and a . /[id number]/MODL
[2018-10-18] MEDS: traZODone 100 MG TAB PO SCH (20:28)
[2018-10-18] MEDS: PATCH REMOVAL 1 EA PATCH TD SCH (20:29)
[2018-10-19] MEDS: HYDROmorphONE/DILAUDID 1 MG/ML INJ IVP PRN ×3 (01:11→15:08)
[2018-10-19] MEDS: NS 1,000 ML IV SCH (01:29)
[2018-10-19 05:53] LABS: PLATELET COUNT 181 10^3/uL (150-400)
[2018-10-19] MEDS: LR 1,000 ML IV SCH (06:38)
[2018-10-19] MEDS: LIDOCAINE 4%/MENTHOL 1% PATCH TD SCH (08:42)
[2018-10-19] MEDS: DULoxetine 30 MG CAP PO SCH (08:42)
--- NOTE | 2018-10-19 09:26 | HOSPPROG ---
Hospitalist Progress Note Assessment/Plan: # diarrhea - slow improvement, possibly d/t imodium - full w/u pending per GI - may need EGD with biopsy # pre-syncope - likely hypovolemic # STAN - improved today with IVF; - cont IVF, recheck tomorrow # hyperK - resolved # NAGMA - change IVF to LR # bradycardia - no pauses; doubt this was the etiology of her syncope; may be d/t vagal from diarrhea - cont on tele for another day Subjective: still having diarrhea but less frequently; ate breakfast - first food in 8 days; Objective: Vital Signs Temp Pulse Resp BP Pulse Ox 36.6 C 54 L 16 168/70 H 100 10/19/18 07:40 10/19/18 07:40 10/19/18 07:40 10/19/18 07:40 10/19/18 07:40 Laboratory Results 10/19/18 05:18 10/19/18 05:18 10/18/18 10/19/18 10/20/18 05:59 05:59 05:59 Intake Total 1000 1218 Output Total 100 Balance 900 1218 tele reviewed - no pauses chart reviewed including Dr Marquez's note - Physical Exam Constitutional: uncomfortable Cardiovascular: no murmur, rub, or gallop, bradycardia Respiratory: no respiratory distress, no rales or rhonchi, clear to auscultation Gastrointestinal: normoactive bowel sounds, soft, non-tender abdomen, no palpable masses ICD10 Worksheet Patient Problems: Problems Problem Status Onset Renal failure Acute Acute kidney injury Acute Diarrhea Acute
--- NOTE | 2018-10-19 14:21 | SOAPPROG ---
SOAP Progress Note Assessment/Plan: Assessment/Plan: Diarrhea x 8 days; may be improving. Suspect viral gastroenteritis. Dehydration better. - imodium 1 tab p.o. bid routinely; hold for constipation. Once doing better, can be changed to prn. From a G.I. standpoint, ok to d/c home tomorrow, if continues to do better. 10/19/18 14:16 Subjective: cc: diarrhea One loose bm this AM, but none since. Imodium 1 tablet lasted about 17 hours. Less abdominal cramps. Tolerating po. Objective: Vital Signs Temp Pulse Resp BP Pulse Ox 36.8 C 52 L 16 133/65 H 95 10/19/18 11:35 10/19/18 11:35 10/19/18 11:35 10/19/18 11:35 10/19/18 11:35 Laboratory Results 10/19/18 05:18 10/19/18 05:18 10/18/18 10/19/18 10/20/18 05:59 05:59 05:59 Intake Total 1000 1218 Output Total 100 Balance 900 1218 Esoteric work-up (chromogranin A, celiac, IgA, gastrin, VIP, tryptase, 5-HIAA, pending. TSH nl. Stool sample for repeat c diff, [id number], fecal fat not submitted. Physical Exam - Physical Exam General Appearance: WD/WN, alert, no apparent distress EENT: PERRL/EOMI, normal ENT inspection, pharynx normal, TMs normal Neck: non-tender, full range of motion, supple, normal inspection Respiratory: chest non-tender, lungs clear, normal breath sounds Cardiac/Chest: normal peripheral pulses, regular rate, rhythm Peripheral Pulses: 2+: carotid (R), carotid (L), femoral (R), femoral (L), dorsalis-pedis (R), dorsalis-pedis (L) Abdomen: normal bowel sounds, non-tender, soft Pelvic Exam: deferred Rectal: deferred Back: Normal inspection Skin: normal color, warm/dry Lymphatic: no adenopathy Extremities: normal range of motion, non-tender, normal inspection, normal capillary refill Neuro/Psych: no motor/sensory deficits, alert, normal mood/affect, oriented x 3 ICD10 Worksheet Patient Problems: Problems Problem Status Onset Acute kidney injury Acute Diarrhea Acute Renal failure Acute
[2018-10-19] MEDS ORDERED: OXYCODONE/APAP 5/325 TAB PO ONE (22:00)
[2018-10-19] MEDS: LOPERAMIDE HCL 2 MG CAP PO SCH (22:06)
[2018-10-19] MEDS: traZODone 100 MG TAB PO SCH (22:06)
[2018-10-19] MEDS: PATCH REMOVAL 1 EA PATCH TD SCH (22:57)
[2018-10-20] MEDS: LR 1,000 ML IV SCH ×2 (00:21→14:19)
--- NOTE | 2018-10-20 05:24 | CPEKG ---
Test Reason : OPEN Blood Pressure : / mmHG Vent. Rate : 045 BPM Atrial Rate : 045 BPM P-R Int : 152 ms QRS Dur : 085 ms QT Int : 559 ms P-R-T Axes : 050 014 074 degrees QTc Int : 484 ms Sinus bradycardia Abnormal R-wave progression, early transition Confirmed by Malena Blancas ([id number]) on 10/20/2018 5:23:38 AM Referred By: Confirmed By:Malena Blancas
[2018-10-20 05:54] LABS: PLATELET COUNT 208 10^3/uL (150-400)
[2018-10-20] MEDS ORDERED: OXYCODONE/APAP 5/325 TAB PO PRN (08:45)
[2018-10-20] MEDS: LOPERAMIDE HCL 2 MG CAP PO SCH ×2 (10:08→20:54)
[2018-10-20] MEDS: DULoxetine 30 MG CAP PO SCH (10:08)
[2018-10-20] MEDS: LIDOCAINE 4%/MENTHOL 1% PATCH TD SCH (10:09)
--- NOTE | 2018-10-20 10:10 | HOSPPROG ---
Hospitalist Progress Note Assessment/Plan: # diarrhea - slow improvement, possibly d/t imodium - full w/u pending per GI - may need EGD with biopsy if does not resolved - not taking enough PO for discharge today - try to control pain with only narcotics PO today # pre-syncope - likely hypovolemic # low back pain - chronic, worse today # STAN - improved today with IVF; - cont IVF, recheck tomorrow # hyperK - resolved # NAGMA - change IVF to LR # bradycardia - no pauses; doubt this was the etiology of her syncope; may be d/t vagal from diarrhea - stop tele Subjective: "miserable" with low back pain, low abd pain; did not eat dinner last night; had diarrhea after breakfast Objective: Vital Signs Temp Pulse Resp BP Pulse Ox 36.7 C 73 16 115/85 H 95 10/20/18 07:55 10/20/18 07:55 10/20/18 07:55 10/20/18 07:55 10/20/18 07:55 Laboratory Results 10/20/18 05:42 10/20/18 05:42 10/19/18 10/20/18 10/21/18 05:59 05:59 05:59 Intake Total 1000 1218 1210 Output Total 100 Balance 900 1218 1210 high risk not taking PO - Physical Exam Constitutional: uncomfortable Cardiovascular: regular rate and rhythym, no murmur, rub, or gallop Respiratory: no respiratory distress, no rales or rhonchi, clear to auscultation Gastrointestinal: normoactive bowel sounds, other (soft, mild TTP diffusely), No rebound, No distension ICD10 Worksheet Patient Problems: Problems Problem Status Onset Renal failure Acute Acute kidney injury Acute Diarrhea Acute
[2018-10-20] MEDS: OXYCODONE/APAP 5/325 TAB PO PRN ×3 (10:19→20:53)
[2018-10-20] MEDS: ENOXAPARIN 40 MG/0.4 ML SYR SC SCH (10:20)
--- NOTE | 2018-10-20 12:59 | SOAPPROG ---
SOAP Progress Note Assessment/Plan: Assessment/Plan: Diarrhea x 9 days; some this AM, but may be improving. Suspect viral gastroenteritis. Dehydration resolved. - cont. imodium 1 tab p.o. bid routinely; hold for constipation. Once doing better, can be changed to prn. From a G.I. standpoint, ok to d/c home when stable from other problems, if continues to do better. 10/20/18 12:57 Subjective: cc: diarrhea Worsening chronic back pain. Some loose stool after breakfast today. No rigors , chills, sweats. Objective: Vital Signs Temp Pulse Resp BP Pulse Ox 36.7 C 68 16 121/60 H 94 10/20/18 12:53 10/20/18 12:53 10/20/18 12:53 10/20/18 12:53 10/20/18 12:53 Laboratory Results 10/20/18 05:42 10/20/18 05:42 10/19/18 10/20/18 10/21/18 05:59 05:59 05:59 Intake Total 1000 1218 1210 Output Total 100 Balance 900 1218 1210 Diarrhea w/u still pending (see 10/19 note for details) Physical Exam - Physical Exam General Appearance: WD/WN, alert, no apparent distress EENT: PERRL/EOMI, normal ENT inspection, pharynx normal, TMs normal Neck: non-tender, full range of motion, supple, normal inspection Respiratory: chest non-tender, lungs clear, normal breath sounds Cardiac/Chest: normal peripheral pulses, regular rate, rhythm Peripheral Pulses: 2+: carotid (R), carotid (L), femoral (R), femoral (L), dorsalis-pedis (R), dorsalis-pedis (L) Abdomen: normal bowel sounds, non-tender, soft Pelvic Exam: deferred Rectal: deferred Back: Normal inspection Skin: normal color, warm/dry Lymphatic: no adenopathy Extremities: normal range of motion, non-tender, normal inspection, normal capillary refill Neuro/Psych: no motor/sensory deficits, alert, normal mood/affect, oriented x 3 ICD10 Worksheet Patient Problems: Problems Problem Status Onset Acute kidney injury Acute Diarrhea Acute Renal failure Acute
--- NOTE | 2018-10-20 16:41 | ASMTCMCOM ---
CM Note CM Note Notes: CM discussed case with SELIN Gale. Patient s/p cholecystectomy. PT/OT recommending home, plan continues to be likely discharge to home independent. D/C Plan: Independent Date Signed: 10/20/2018 04:40 PM Electronically Signed By:Laura Vasquez
[2018-10-20] MEDS: traZODone 100 MG TAB PO SCH (20:53)
[2018-10-20] MEDS: PATCH REMOVAL 1 EA PATCH TD SCH (20:54)
[2018-10-21] MEDS: OXYCODONE/APAP 5/325 TAB PO PRN ×5 (02:49→22:49)
[2018-10-21] MEDS: LR 1,000 ML IV SCH (03:45)
[2018-10-21] MEDS: ENOXAPARIN 40 MG/0.4 ML SYR SC SCH (08:51)
[2018-10-21] MEDS: DULoxetine 30 MG CAP PO SCH (08:51)
[2018-10-21] MEDS: LOPERAMIDE HCL 2 MG CAP PO SCH ×2 (08:52→19:57)
[2018-10-21] MEDS: LIDOCAINE 4%/MENTHOL 1% PATCH TD SCH (08:56)
--- NOTE | 2018-10-21 09:23 | HOSPPROG ---
Hospitalist Progress Note Assessment/Plan: 73 yo F w diarrhea, STAN diarrhea - slow improvement, possibly d/t imodium - full w/u pending per GI- many labs pending - may need EGD with biopsy if does not resolved - - try to control pain with only narcotics PO today pre-syncope - likely hypovolemic low back pain - chronic, lidocaine patch po meds STAN - improved today with IVF; -approaching baseline repeat today dc IVF hyperK - resolved NAGMA - change IVF to LR dc IVF bradycardia - no pauses; doubt this was the etiology of her syncope; may be d/ t vagal from diarrhea - stop tele dispo: inpt Subjective: no bm this AM. feels better. eating some Objective: Vital Signs Temp Pulse Resp BP Pulse Ox 36.7 C 63 16 146/82 H 92 10/21/18 08:00 10/21/18 08:00 10/21/18 08:00 10/21/18 08:00 10/21/18 08:00 Laboratory Results 10/20/18 05:42 10/20/18 05:42 10/20/18 10/21/18 10/22/18 05:59 05:59 05:59 Intake Total 1218 2955 Balance 1218 2955 - Physical Exam Constitutional: no apparent distress, appears nourished Eyes: PERRL, anicteric sclera Ears, Nose, Mouth, Throat: moist mucous membranes, hearing normal Cardiovascular: regular rate and rhythym, no murmur, rub, or gallop, No tachycardia Respiratory: no respiratory distress, no rales or rhonchi Gastrointestinal: normoactive bowel sounds Genitourinary: no bladder fullness Skin: warm, normal color Musculoskeletal: full muscle strength Neurologic: AAOx3 ICD10 Worksheet Patient Problems: Problems Problem Status Onset Acute kidney injury Acute Diarrhea Acute Renal failure Acute
--- NOTE | 2018-10-21 11:23 | SOAPPROG ---
SOAP Progress Note Assessment/Plan: Assessment/Plan: Subacute diarrhea; improved. Suspect resolving viral gastroenteritis. - cont. imodium 1 tab p.o. bid routinely; hold for constipation. Once doing better, can be changed to prn. I will sign off. I will f/u on pending lab tests, but suspect will be unremarkable. Else, f/u PCP. Please call if we can be of further help [phone]). Thanks! 10/21/18 11:27 Subjective: cc: diarrhea No further diarrhea. Back pain. No rigors, chills, sweats. Objective: Vital Signs Temp Pulse Resp BP Pulse Ox 36.7 C 63 16 146/82 H 92 10/21/18 08:00 10/21/18 08:00 10/21/18 08:00 10/21/18 08:00 10/21/18 08:00 Laboratory Results 10/20/18 05:42 10/21/18 09:49 10/20/18 10/21/18 10/22/18 05:59 05:59 05:59 Intake Total 1218 2955 Balance 1218 2955 Please see my 10/19/18 progress note, for a complete list of pending lab studies. Physical Exam - Physical Exam General Appearance: WD/WN, alert, no apparent distress EENT: PERRL/EOMI, normal ENT inspection, pharynx normal, TMs normal Neck: non-tender, full range of motion, supple, normal inspection Respiratory: chest non-tender, lungs clear, normal breath sounds Cardiac/Chest: normal peripheral pulses, regular rate, rhythm Peripheral Pulses: 2+: carotid (R), carotid (L), femoral (R), femoral (L), dorsalis-pedis (R), dorsalis-pedis (L) Abdomen: normal bowel sounds, non-tender, soft Pelvic Exam: deferred Rectal: deferred Back: Normal inspection Skin: normal color, warm/dry Lymphatic: no adenopathy Extremities: normal range of motion, non-tender, normal inspection, normal capillary refill Neuro/Psych: no motor/sensory deficits, alert, normal mood/affect, oriented x 3 ICD10 Worksheet Patient Problems: Problems Problem Status Onset Acute kidney injury Acute Diarrhea Acute Renal failure Acute
[2018-10-21] MEDS ORDERED: hydrALAZINE 20 MG/ML VIAL IVP PRN (18:09)
[2018-10-21] MEDS: PATCH REMOVAL 1 EA PATCH TD SCH (21:02)
[2018-10-21] MEDS: traZODone 100 MG TAB PO SCH (21:02)
[2018-10-22] MEDS: OXYCODONE/APAP 5/325 TAB PO PRN (04:38)
[2018-10-22] MEDS: LOPERAMIDE HCL 2 MG CAP PO SCH (08:07)
[2018-10-22] MEDS: ENOXAPARIN 40 MG/0.4 ML SYR SC SCH (08:18)
[2018-10-22] MEDS: LIDOCAINE 4%/MENTHOL 1% PATCH TD SCH (08:18)
[2018-10-22] MEDS: DULoxetine 30 MG CAP PO SCH (08:18)
[2018-10-22 08:32] VITALS: BP 154/82
--- NOTE | 2018-10-22 09:52 | HOSPPROG ---
Hospitalist Progress Note Assessment/Plan: 73 yo F w diarrhea, STAN diarrhea - slow improvement, possibly d/t imodium - full w/u pending per GI- many labs pending - may need EGD with biopsy if does not resolved - - try to control pain with only narcotics PO today pre-syncope - likely hypovolemic htn: persistently quite high will dc on norvasc 2.5 low back pain - chronic, lidocaine patch po meds STAN - improved today with IVF; -approaching baseline repeat today dc IVF hyperK - resolved NAGMA - change IVF to LR dc IVF bradycardia - no pauses; doubt this was the etiology of her syncope; may be d/ t vagal from diarrhea - stop tele dispo: home today > 30 minutes on dc Subjective: no diarrhea two days. had CP- ekg normal (interp by me) Objective: Vital Signs Temp Pulse Resp BP Pulse Ox 36.4 C 73 16 154/82 H 96 10/22/18 08:00 10/22/18 08:00 10/22/18 08:00 10/22/18 08:00 10/22/18 08:00 Laboratory Results 10/20/18 05:42 10/22/18 04:23 10/21/18 10/22/18 10/23/18 05:59 05:59 05:59 Intake Total 2955 1725 Balance 2955 1725 - Physical Exam Constitutional: no apparent distress, appears nourished Eyes: PERRL, anicteric sclera Ears, Nose, Mouth, Throat: moist mucous membranes, hearing normal Cardiovascular: regular rate and rhythym, no murmur, rub, or gallop, systolic murmur Respiratory: no respiratory distress, no rales or rhonchi Gastrointestinal: normoactive bowel sounds, soft, non-tender abdomen, No guarding, No rebound Genitourinary: No roman in urethra Skin: warm, normal color Musculoskeletal: full muscle strength Neurologic: AAOx3 ICD10 Worksheet Patient Problems: Problems Problem Status Onset Acute kidney injury Acute Diarrhea Acute Renal failure Acute
--- NOTE | 2018-10-22 10:10 | GDS ---
DISCHARGE DIAGNOSES: 1. Viral gastroenteritis without microbiologic diagnosis. 2. Hypertension. This is a new diagnosis. 3. Anxiety. 4. Chronic back pain. 5. Acute kidney injury. Please see admission history and physical by Dr. Fabiano Wilde. The patient presented with malaise and dehydration. She had recently been discharged from the hospital with viral gastritis. Her BUN and creatinine were 32 and 3.1. She has a normal baseline. She was hypovolemic. She has now been volum e resuscitated. Creatinine has returned to normal baseline. The patient is reluctant to leave the h ospital, but really had no other indication to stay in the hospital. She had an episode of chest michael n with a nonischemic EKG. She had persistently elevated blood pressures in the 160/80 and higher. S he responded well to Norvasc. I am discharging her on 2.5 Norvasc as well as some p.r.n. Imodium. H er last bowel movement was a day and a half ago. She was advised not to take Imodium until she has a nother bowel movement. There are some lab tests that were sent by GI that are pending at this time. /[id number]/MODL
--- NOTE | 2018-10-22 10:13 | ASMTLACE ---
[place] Length of stay for Answers: 4-6 days current admission Acuity / Level of Answers: Yes Care: Did the patient have an inpatient admission? # of Emergency department Answers: 1-2 visits in the last 6 months Social determinants Answers: Mental health diagnosis (anxiety, depression, pers onality disorders, etc.) Score: 11 Date Signed: 10/22/2018 10:13 AM Electronically Signed By:Anjali Friedman RN
--- NOTE | 2018-10-22 12:13 | ASMTCMCOM ---
CM Note CM Note Notes: Met with pt, she was tearful d/t her children not calling her this holiday. She states she does not have a ride, CM offered a cab voucher, which accepts. Update: Pt's son coming to pick her up today. DC Plan: Independent Date Signed: 10/22/2018 12:13 PM Electronically Signed By:Anjali Friedman RN
--- NOTE | 2018-10-24 09:35 | CPEKG ---
Test Reason : OPEN Blood Pressure : / mmHG Vent. Rate : 059 BPM Atrial Rate : 060 BPM P-R Int : 153 ms QRS Dur : 095 ms QT Int : 456 ms P-R-T Axes : 065 043 078 degrees QTc Int : 452 ms Sinus rhythm Minimal ST depression, anterolateral leads Confirmed by José Miguel Richards ([id number]) on 10/24/2018 9:34:59 AM Referred By: Confirmed By:José Miguel Richards
== END 2018-10-22 12:14 | disposition home or self-care (01) | DRG 683 ==
LOC: EDUNIT# → F3E 11:46 → OBSVTOIN 14:41
PROVIDERS: ADMIT Student in an Organized Health Care Education/Training Program; ATTEND Internal Medicine
DX: N17.9 Acute kidney failure, unspecified (principal); A08.39 Other viral enteritis; E86.0 Dehydration; E87.5 Hyperkalemia; R07.9 Chest pain, unspecified; I10 Essential (primary) hypertension; F32.9 Major depressive disorder, single episode, unspecified; F41.9 Anxiety disorder, unspecified; M54.5 Low back pain; F17.210 Nicotine dependence, cigarettes, uncomplicated
CPT/HCPCS: 82397-90; 82784-90; 82941-90; 83497-90; 83516-90; 83520-90; 84484-ER; 84586-90; 92507-GN; 92523-GN; 96374; 97161-GP; 97165-GO; G8978-GP-CH; G8979-GP-CH; G8980-GP-CH; G8987-GO-CI; G8988-GO-CI; G8989-GO-CI; G9168-GN-CK; G9169-GN-CI; J0360; J1170; J1650

== ENCOUNTER 2018-10-27 11:42 | Emergency (ER) | payer OTHER, MEDICARE ==
--- NOTE | 2018-10-27 12:18 | EDPHY ---
H & P Stated Complaint: Out of trazadone x 3 days;not sleeping/eating;anxious Time Seen by Provider: 10/27/18 12:17 HPI/ROS: HPI: This is a 73-year-old female who presents with Chief Complaint: Out of trazodone x 3 days;not sleeping/eating;anxious Location:psych Quality: Out of trazodone Duration: 3 days Signs and Symptoms:+ nausea, + decreased appetite, + tremors Timing: Acute on chronic Severity: Moderate Context: Patient initially complains of high blood pressure but after further questioning reports that she has been out of her trazodone for the last 3 days and has not been able to the eat or sleep since that time. She reports that she moved to the area from [place] approximately 2-3 months ago. She has no primary care provider. She reports that she drove herself to the emergency room. She feels extremely anxious. She has had some loose stools approximately 1-2 per day. Denies alcohol or drug use. She reports in the past she has had abused her benzodiazepines and trazodone and that her son-in- law a usually dispenses her medications and has refused to give them to her. She then tells me that she is out of her trazodone for the last 3 days. Chart review shows that she has had an admission recent as over [facility] for gastroenteritis and acute kidney injury. Modifying Factors: None Comment: ROS: A comprehensive 10 system review of systems is otherwise negative aside from elements mentioned in the history of present illness. MEDICAL/SURGICAL/SOCIAL HISTORY: Medical history: depression, anxiety Surgical history: Hysterectomy, knee Sx Social history: Current every day smoker. Lives alone. Family history noncontributory. CONSTITUTIONAL: Anxious, nontoxic-appearing elderly white female, awake and alert, no obvious distress HEENT: Atraumatic and normocephalic, PERRL, EOMI. Nares patent; no rhinorrhea; no nasal mucosal edema. Tympanic membranes clear. Oropharynx clear, no exudate and dry oral mucosa. Airway patent. No lymphadenopathy. No meningismus. Cardiovascular: Normal S1/S2, regular rate, regular rhythm, without murmur rub or gallop. PULMONARY/CHEST: Symmetrical and nontender. Clear to auscultation bilaterally. Good air movement. No accessory muscle usage. ABDOMEN: Soft, nondistended, nontender, no rebound, no guarding, no peritoneal signs, no masses or organomegaly. No CVAT. EXTREMITIES: 2/2 pulses, strength 5/5, no deformities, no clubbing, no cyanosis or edema. NEUROLOGICAL: no focal neuro deficits. GCS 15. SKIN: Warm and dry, no erythema. no rash. Good capillary refill. Source: Patient Exam Limitations: No limitations - Personal History Current Tetanus Diphtheria and Acellular Pertussis (TDAP): Yes - Medical/Surgical History Hx Asthma: No Hx Chronic Respiratory Disease: No Hx Diabetes: No Hx Cardiac Disease: No Hx Renal Disease: Yes Hx Cirrhosis: No Hx Alcoholism: No Hx HIV/AIDS: No Hx Splenectomy or Spleen Trauma: No Other PMH: Hysterectomy, knee Sx, depression, anxiety - Social History Smoking Status: Current every day smoker Constitutional: Initial Vital Signs Temperature (C) 36.5 C 10/27/18 11:44 Heart Rate 97 10/27/18 11:44 Respiratory Rate 18 10/27/18 11:44 Blood Pressure 157/104 H 10/27/18 11:44 O2 Sat (%) 99 10/27/18 11:44 O2 Delivery Mode Room Air Allergies/Adverse Reactions: No Known Allergies Allergy (Verified 10/27/18 11:43) Home Medications: Medication Instructions Recorded Aspirin [Aspirin 325 mg (*)] 325 mg PO DAILY 10/08/18 DULoxetine [Cymbalta 30 MG (*)] 30 mg PO DAILY 10/08/18 traZODone [traZODONE 100MG (*)] 100 mg PO HS 10/08/18 Ondansetron Odt [Zofran Odt 4 mg 4 mg PO Q6H PRN #20 tab 10/11/18 (*)] Lidocaine 4%/Menthol 1% [Icy Hot 1 patch TD DAILY patch 10/22/18 Lidocaine/Menthol 4%/1% Patch (*)] Loperamide HCl [Imodium 2 mg (*)] 2 mg PO QID PRN #10 cap 10/22/18 amLODIPine BESYLATE [Norvasc 2.5 2.5 mg PO DAILY #30 tab 10/22/18 mg (*)] Ondansetron Odt [Zofran Odt 4 mg 4 mg PO Q4 PRN #12 tab 10/27/18 (*)] amLODIPine BESYLATE [Norvasc 2.5 2.5 mg PO DAILY #30 tab 10/27/18 mg (*)] traZODone [traZODONE 50MG (*)] 50 mg PO HS PRN #5 tab 10/27/18 Medical Decision Making ED Course/Re-evaluation: Vital signs reviewed and stable upon arrival. IV access and laboratory studies obtained Will give 1 L normal saline and IV Ativan 1 mg manager water wastewater consult 1354: Reassessed patient who is blood pressure has relief of anxiety type symptoms. Labs reviewed. Sodium 128, creatinine 1.0 Chart review shows that patient has was be taking Norvasc 2.5 mg daily but has not been taking as did not picking supervisor at the drug store after discharge on 10/22. Patient was given a dose in the emergency room Patient was offered admission for show for reasons but politely declined and is alert and oriented x4. She is able to make this decision on her own. Patient does not meet M1 hold or [facility] criteria. 1440: manager water wastewater Colleen at bedside. Patient will be establish with primary care with [facility] and close follow-up this week with repeat laboratory studies. manager water wastewater called family. Son and his [id number] came to the hospital and drove patient home and will contract for her safety. Urinalysis shows 1+ ketones but no signs of infection. Her son is to dispense the medication to her as prescribed. Patient understands this. Urine drug screen is positive for marijuana Drinking fluids in the ER prior to discharge. This patient was seen under the supervision of my secondary supervising physician. I evaluated care for this patient independently. Discussed this patient with Dr. Zavala who did not see the patient. Differential Diagnosis: Differential diagnosis includes but is not limited to major depression, anxiety disorder, schizophrenia, bipolar disorder, intoxicant use, suicidal ideation, psychosis, barber. - Data Points Laboratory Results: Laboratory Results 10/27/18 12:24 10/27/18 12:24 10/27/18 10/27/18 10/27/18 14:28 12:24 12:24 WBC 13.72 10^3/uL H 10^3/uL (3.80-9.50) RBC 4.53 10^6/uL 10^6/uL (4.18-5.33) Hgb 14.0 g/dL g/dL (12.6-16.3) Hct 40.7 % % (38.0-47.0) MCV 89.8 fL fL (81.5-99.8) MCH 30.9 pg pg (27.9-34.1) MCHC 34.4 g/dL g/dL (32.4-36.7) RDW 14.6 % % (11.5-15.2) Plt Count 422 10^3/uL H 10^3/uL (150-400) MPV 11.2 fL fL (8.7-11.7) Neut % (Auto) 73.7 % % (39.3-74.2) Lymph % (Auto) 18.1 % % (15.0-45.0) Patrick % (Auto) 7.0 % % (4.5-13.0) Eos % (Auto) 0.1 % L % (0.6-7.6) Baso % (Auto) 0.3 % % (0.3-1.7) Nucleat RBC Rel Count 0.0 % % (0.0-0.2) Absolute Neuts (auto) 10.10 10^3/uL H 10^3/uL (1.70-6.50) Absolute Lymphs (auto) 2.49 10^3/uL 10^3/uL (1.00-3.00) Absolute Monos (auto) 0.96 10^3/uL H 10^3/uL (0.30-0.80) Absolute Eos (auto) 0.02 10^3/uL L 10^3/uL (0.03-0.40) Absolute Basos (auto) 0.04 10^3/uL 10^3/uL (0.02-0.10) Absolute Nucleated RBC 0.00 10^3/uL 10^3/uL (0-0.01) Immature Gran % 0.8 % % (0.0-1.1) Immature Gran # 0.11 10^3/uL H 10^3/uL (0.00-0.10) Sodium 128 mEq/L L mEq/L (135-145) Potassium 4.1 mEq/L mEq/L (3.5-5.2) Chloride 94 mEq/L L mEq/L (97-110) Carbon Dioxide 16 mEq/l L mEq/l (22-31) Anion Gap 18 mEq/L H mEq/L (6-14) BUN 18 mg/dL mg/dL (7-23) Creatinine 1.0 mg/dL mg/dL (0.6-1.0) Estimated GFR 54 Glucose 104 mg/dL H mg/dL (70-100) Calcium 9.9 mg/dL mg/dL (8.5-10.4) Total Bilirubin 0.7 mg/dL mg/dL (0.1-1.4) Conjugated Bilirubin 0.7 mg/dL H mg/dL (0.0-0.5) Unconjugated Bilirubin 0.0 mg/dL mg/dL (0.0-1.1) AST 31 IU/L IU/L (14-46) ALT 38 IU/L IU/L (9-52) Alkaline Phosphatase 116 IU/L IU/L (38-126) Total Protein 8.8 g/dL H g/dL (6.3-8.2) Albumin 5.2 g/dL H g/dL (3.5-5.0) Urine Color YELLOW Urine Appearance CLEAR Urine pH 5.0 (5.0-7.5) Ur Specific [place] 1.005 (1.002-1.030) Urine Protein NEGATIVE (NEGATIVE) Urine Ketones 1+ H (NEGATIVE) Urine Blood NEGATIVE (NEGATIVE) Urine Nitrate NEGATIVE (NEGATIVE) Urine Bilirubin NEGATIVE (NEGATIVE) Urine Urobilinogen NEGATIVE EU EU (0.2-1.0) Ur Leukocyte Esterase NEGATIVE (NEGATIVE) Urine Glucose NEGATIVE (NEGATIVE) Urine Opiates Screen NEGATIVE (NEGATIVE) Urine Barbiturates NEGATIVE (NEGATIVE) Ur Phencyclidine Scrn NEGATIVE (NEGATIVE) Ur Amphetamine Screen NEGATIVE (NEGATIVE) U Benzodiazepines Scrn NEGATIVE (NEGATIVE) Urine Cocaine Screen NEGATIVE (NEGATIVE) U Marijuana (THC) Screen NON-NEGATIVE H (NEGATIVE) Medications Given: Discontinued Medications Amlodipine Besylate (Norvasc) 2.5 mg PO EDNOW ONE Stop: 10/27/18 14:41 Last Admin: 10/27/18 15:22 Dose: Not Given Sodium Chloride (Ns) 1,000 mls @ 0 mls/hr IV EDNOW ONE; Wide Open PRN Reason: Protocol Stop: 10/27/18 13:08 Last Admin: 10/27/18 13:31 Dose: 1,000 mls Lorazepam (Ativan Injection) 1 mg IVP EDNOW ONE Stop: 10/27/18 13:08 Last Admin: 10/27/18 13:21 Dose: 1 mg Departure - Departure Disposition: Home, Routine, Self-Care Clinical Impression: Essential hypertension, Has run out of medications, Hyponatremia Anxiety disorder Qualifiers: Anxiety disorder type: generalized anxiety disorder Qualified Code(s): F41.1 - Generalized anxiety disorder Condition: Good Instructions: Hyponatremia (ED), Generalized Anxiety Disorder (ED) Additional Instructions: Consume a minimum of 8-10 glasses of water or electrolyte fluid replacement drinks that include Gatorade, Powerade, Pedialyte. Eat a bland diet for the next 48 hours and then slowly advance as tolerated. Take Zofran 1 tab every 4 hours as needed for nausea, vomiting. Take trazodone 50 mg at bedtime. Take Norvasc 2.5 mg daily. Call for new PCP appointment on Sunday. You will need repeat sodium testing in the next 2-3 days. Referrals: Dayne Daniels MD [Medical Doctor] - As per Instructions Prescriptions: amLODIPine BESYLATE [Norvasc 2.5 mg (*)] 2.5 mg PO DAILY #30 tab Ondansetron Odt [Zofran Odt 4 mg (*)] 4 mg PO Q4 PRN #12 tab PRN Reason: Nausea/Vomiting, Use 1st traZODone [traZODONE 50MG (*)] 50 mg PO HS PRN #5 tab PRN Reason: Sleep/Insomnia
[2018-10-27] MEDS ORDERED: NS 1,000 ML IV ONE (13:07)
[2018-10-27] MEDS ORDERED: LORazepam 2 MG/ML INJ IVP ONE (13:07)
[2018-10-27 13:14] LABS: PLATELET COUNT 422 10^3/uL (150-400)
[2018-10-27] MEDS ORDERED: amLODIPine BESYLATE 5 MG TAB PO ONE (14:40)
[2018-10-27 15:18] VITALS: BP 121/66
--- NOTE | 2018-10-27 17:18 | ASMTCMCOM ---
CM Note CM Note Notes: Pt presented to the ED through triage for high blood pressure. Pt lives in Ind Living at [facility] ([phone]). This is the pt's 3rd ED visit in the past 2 1/2 weeks; pt was admitted the other two times. Pt's PMH includes HTN, anxiety, depression, arthritis and chronic pain. Pt has a history of abusing narcotics and benzodiazepines. Pt was d/c'd on 10/22/18 w/instructions to followup with 's Typing Section Chief, Renu, to see if she could help her find a PCP. Pt states she followed up w/someone but cldn't remember their name and they told her that they do not assist pts in Ind. Living w/things like that. 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 We discussed the fact that she drove herself to the ED today and pt stated "but just barely." Called and spoke w/Maximino (pt gave verbal permission for CM to call and speak with him). Per Maximino, pt returned to [place] about six weeks ago after living in [place] w/a friend for about a year. Per Maximino, pt and the friend had a falling out and "lost her apartment." Per Maximino pt also had been living w/pt's daughter, Marleny, when she first arrived back to [place] but "things didn't work out there" because Marleny and her ex-HUYEN were in charge of dispensing pt's meds and pt was stealing some meds somehow. Pt states Marleny is currently not speaking w/her. Maximino states pt had a history of abusing Rxn narcotic and benzos for the past 10-15 yrs. Maximino also states pt had been admitted to [facility] and "a geriatric hospital in [place]" about 1.5-2yrs ago. Maximino states that during that time pt "kept running out of money and losing her apartment." Maximino states he would ultimately like to see about getting pt on Medicaid and into the Assisted Living at . Pt provided referral to the on-call PCP Dr Daniels and recommended she call tomorrow morning and see if he is accepting new Medicare patients and if he isn't, pt is recommended to call [facility] Centralized Scheduling and get a PCP that way. Pt provided the pamphlet for [facility] Clinics. Maximino and Inge arrived to the ED to help transport pt and her car back home. This CM called in Rxns (Trazadone and Zofran) to [place]; spoke w/pharmacist who states pt still has the Norvasc filled and waiting to be picked up from the 10/22/18 Rxn. Maximino states he and Inge will be in charge of dispensing the Trazadone and pt is also agreeable w/this plan. Pt has a history of taking too much of her Gabapentin in the past but she did not mention she needs a Rxn. This CM to followup w/pt and Maximino tomorrow morning to see if they were successful w/getting a PCP appt. Date Signed: 10/27/2018 05:18 PM Electronically Signed By:Colleen Ramon RN
== END 2018-10-27 16:07 | disposition home or self-care (01) ==
DX: F41.1 Generalized anxiety disorder (principal); I10 Essential (primary) hypertension; E87.1 Hypo-osmolality and hyponatremia; G47.9 Sleep disorder, unspecified; R63.3 Feeding difficulties; E86.9 Volume depletion, unspecified
CPT/HCPCS: 96361; 96374; 99284; J2060; 80305

== ENCOUNTER 2018-12-03 09:08 | Observation (INO) | payer OTHER, MEDICARE ==
[2018-12-03] MEDS ORDERED: NS 1,000 ML IV ONE (09:12)
--- NOTE | 2018-12-03 09:12 | EDPHY ---
H & P Time Seen by Provider: 12/03/18 09:11 HPI/ROS: CHIEF COMPLAINT: Nausea vomiting and diarrhea HISTORY OF PRESENT ILLNESS: Arrives via EMS. Patient had symptoms for the last 2 days starting on Sunday of this past weekend. Multiple episodes of nausea vomiting and diarrhea worse each day, severe today. Not associated with hematemesis or coffee-ground emesis or melena or bloody diarrhea. Worse with oral intake. Associated with subjective fever and chills. REVIEW OF SYSTEMS: Eye: no change in vision ENT: no sore throat Cardiac: no chest pain or syncope Pulmonary: no cough or SOB Abdomen: HPI Musculoskeletal: no back pain Skin: no rash Neuro: Mild headache Constitutional: HPI : no urinary symptoms A comprehensive 10 point review of systems is otherwise negative aside from elements mentioned in the history of present illness. PAST MEDICAL HISTORY: Arthritis and hypertension, cholecystectomy Social history: Lives at [facility] General Appearance: Alert and conversant, cooperative. Eyes: No scleral icterus. ENT, Mouth: Dry mucous membranes Respiratory: Normal respiratory effort, breath sounds equal, lungs are clear to auscultation. Cardiovascular: Regular rate and rhythm. Gastrointestinal: Abdomen is soft and non tender. No rebound or guarding. Neurological: Alert, face symmetric, normal motor and sensory in extremities. Skin: Warm and dry, no rashes. Musculoskeletal: No peripheral edema. Psychiatric: Not agitated. Emergency Department course/MDM: Patient presents with clinical dehydration vomiting and diarrhea with some abdominal pain. IV hydration, labs, antiemetics. 1019: Case management report reviewed 10/27/2018 history of narcotic and benzodiazepine abuse. Additional 12.5 mg IV Phenergan. Bowel obstruction be unlikely with continued diarrhea, does not have acute surgical abdominal exam. Will defer imaging unless she gets worse. Will admit for hydration and acute kidney injury and dehydration with CO2 16. Smoking Status: Current every day smoker Constitutional: Initial Vital Signs Temperature (C) 36.8 C 12/03/18 09:18 Heart Rate 93 12/03/18 09:18 Respiratory Rate 22 H 12/03/18 09:18 Blood Pressure 206/120 H 12/03/18 09:18 O2 Sat (%) 99 12/03/18 09:18 O2 Delivery Mode Room Air Allergies/Adverse Reactions: No Known Allergies Allergy (Verified 12/03/18 09:20) Home Medications: Medication Instructions Recorded Aspirin [Aspirin 325 mg (*)] 325 mg PO DAILY 10/08/18 DULoxetine [Cymbalta 30 MG (*)] 30 mg PO DAILY 10/08/18 traZODone [traZODONE 100MG (*)] 100 mg PO HS 10/08/18 Ondansetron Odt [Zofran Odt 4 mg 4 mg PO Q6H PRN #20 tab 10/11/18 (*)] Lidocaine 4%/Menthol 1% [Icy Hot 1 patch TD DAILY patch 10/22/18 Lidocaine/Menthol 4%/1% Patch (*)] Loperamide HCl [Imodium 2 mg (*)] 2 mg PO QID PRN #10 cap 10/22/18 amLODIPine BESYLATE [Norvasc 2.5 2.5 mg PO DAILY #30 tab 10/22/18 mg (*)] Ondansetron Odt [Zofran Odt 4 mg 4 mg PO Q4 PRN #12 tab 10/27/18 (*)] amLODIPine BESYLATE [Norvasc 2.5 2.5 mg PO DAILY #30 tab 10/27/18 mg (*)] traZODone [traZODONE 50MG (*)] 50 mg PO HS PRN #5 tab 10/27/18 Medical Decision Making Consult/Admit Bed Type: [facility] for Dr. Valerie Taylor - Data Points Laboratory Results: Laboratory Results 12/03/18 09:08 12/03/18 09:08 12/03/18 12/03/18 12/03/18 09:08 09:08 09:08 WBC 12.16 10^3/uL H 10^3/uL (3.80-9.50) RBC 4.69 10^6/uL 10^6/uL (4.18-5.33) Hgb 14.2 g/dL g/dL (12.6-16.3) Hct 41.7 % % (38.0-47.0) MCV 88.9 fL fL (81.5-99.8) MCH 30.3 pg pg (27.9-34.1) MCHC 34.1 g/dL g/dL (32.4-36.7) RDW 14.7 % % (11.5-15.2) Plt Count 316 10^3/uL 10^3/uL (150-400) MPV 11.3 fL fL (8.7-11.7) Neut % (Auto) 86.1 % H % (39.3-74.2) Lymph % (Auto) 8.0 % L % (15.0-45.0) [place] % (Auto) 5.3 % % (4.5-13.0) Eos % (Auto) 0.1 % L % (0.6-7.6) Baso % (Auto) 0.2 % L % (0.3-1.7) Nucleat RBC Rel Count 0.0 % % (0.0-0.2) Absolute Neuts (auto) 10.48 10^3/uL H 10^3/uL (1.70-6.50) Absolute Lymphs (auto) 0.97 10^3/uL L 10^3/uL (1.00-3.00) Absolute Monos (auto) 0.64 10^3/uL 10^3/uL (0.30-0.80) Absolute Eos (auto) 0.01 10^3/uL L 10^3/uL (0.03-0.40) Absolute Basos (auto) 0.02 10^3/uL 10^3/uL (0.02-0.10) Absolute Nucleated RBC 0.00 10^3/uL 10^3/uL (0-0.01) Immature Gran % 0.3 % % (0.0-1.1) Immature Gran # 0.04 10^3/uL 10^3/uL (0.00-0.10) Sodium 133 mEq/L L mEq/L (135-145) Potassium 3.6 mEq/L mEq/L (3.5-5.2) Chloride 98 mEq/L mEq/L (97-110) Carbon Dioxide 16 mEq/l L mEq/l (22-31) Anion Gap 19 mEq/L H mEq/L (6-14) BUN 37 mg/dL H mg/dL (7-23) Creatinine 1.1 mg/dL H mg/dL (0.6-1.0) Estimated GFR 49 Glucose 169 mg/dL H mg/dL (70-100) Calcium 9.6 mg/dL mg/dL (8.5-10.4) Total Bilirubin 0.5 mg/dL mg/dL (0.1-1.4) Conjugated Bilirubin 0.4 mg/dL mg/dL (0.0-0.5) Unconjugated Bilirubin 0.1 mg/dL mg/dL (0.0-1.1) AST 32 IU/L IU/L (14-46) ALT 35 IU/L IU/L (9-52) Alkaline Phosphatase 129 IU/L H IU/L (38-126) Total Protein 8.5 g/dL H g/dL (6.3-8.2) Albumin 4.9 g/dL g/dL (3.5-5.0) Lipase 89 IU/L IU/L (23-300) Medications Given: Discontinued Medications Sodium Chloride (Ns) 1,000 mls @ 0 mls/hr IV EDNOW ONE; Wide Open PRN Reason: Protocol Stop: 12/03/18 09:13 Last Admin: 12/03/18 09:34 Dose: 1,000 mls Promethazine HCl (Phenergan) 12.5 mg IVP EDNOW ONE Stop: 12/03/18 09:32 Last Admin: 12/03/18 09:34 Dose: 12.5 mg Departure - Departure Disposition: [facility] Clinical Impression: Vomiting and diarrhea, Acute kidney injury, Dehydration Condition: Fair Referrals: Patient,NotPresent [Unknown] - As per Instructions
[2018-12-03 09:29] LABS: PLATELET COUNT 316 10^3/uL (150-400)
[2018-12-03] MEDS ORDERED: PROMETHAZINE HCL 25 MG/ML INJ IVP ONE ×2 (09:31→10:19)
[2018-12-03] MEDS ORDERED: ONDANSETRON 4 MG/2 ML VIAL IVP PRN (10:29)
[2018-12-03] MEDS ORDERED: ONDANSETRON DISINTEGRATING 4 MG TAB PO PRN (10:29)
[2018-12-03] MEDS ORDERED: ACETAMINOPHEN 325 MG TAB PO PRN (10:29)
--- NOTE | 2018-12-03 10:52 | ASMTCMCOM ---
CM Note CM Note Notes: Pt in FED by AMS from [facility]. She is dehydrated with fever and chills. Per plan of care -no narcotics have been given in the ED. DC needs TBD, LINO to follow. Date Signed: 12/03/2018 10:51 AM Electronically Signed By:Kan Cai LCSW
[2018-12-03] MEDS ORDERED: hydrALAZINE 20 MG/ML VIAL IVP PRN (12:23)
[2018-12-03] MEDS ORDERED: LORazepam 2 MG/ML INJ IVP PRN (12:37)
[2018-12-03] MEDS ORDERED: NS 1,000 ML IV SCH (13:00)
[2018-12-03] MEDS: FLUoxetine 20 MG CAP PO SCH (13:11)
[2018-12-03] MEDS: DULoxetine 30 MG CAP PO SCH (13:11)
[2018-12-03] MEDS: LIDOCAINE 4%/MENTHOL 1% PATCH TD SCH (13:12)
--- NOTE | 2018-12-03 13:19 | GHP ---
[f rep st] HISTORY AND PHYSICAL DATE OF ADMISSION: 12/03/2018 CHIEF COMPLAINT: Nausea, vomiting, diarrhea. HISTORY OF PRESENT ILLNESS: A 73-year-old female with chronic back pain, anxiety/depression, who presents with nausea and vomiting. Symptoms started on Sunday. She has had progressive diarrhea that has been worse each day. No hematemesis, melena or bright red blood. Says the nausea is worse with oral intake. Has had subjective fevers and chills at home but has not taken her temperature. States that several people in [facility] have been ill. Next, complaining of worsening left lower back pain which is chronic for her. She thinks it has been aggravated by the vomiting. No bladder or bowel incontinence. No lower extremity weakness. No cough. REVIEW OF SYSTEMS: I completed a 10-point review of systems, negative except as noted in HPI. PAST MEDICAL HISTORY: Hypertension, arthritis, prior GI illness in September. PAST SURGICAL HISTORY: Cholecystectomy, partial hysterectomy, total knee replacement. SOCIAL HISTORY: Moved from [place]. Lives at [facility]. Smokes marijuana, last this morning. No alcohol or tobacco. FAMILY HISTORY: Noncontributory. PHYSICAL EXAMINATION: VITAL SIGNS: Temperature 36.8, blood pressure 206/120, now 187/98, heart rate 99, respirations 20, 93% on room air. GENERAL: She is moaning and uncomfortable, restless in bed. HEENT: PERRLA. Dry mucous membranes. CV: Regular rate and rhythm. LUNGS: Clear. ABDOMEN: Soft, nondistended. Positive bowel sounds. : No suprapubic or CVA tenderness. MUSCULOSKELETAL: She is moving all 4 extremities. She has a left lumbar paraspinal tenderness. NEURO: 2 through 12 intact. Sensation to light touch normal. PSYCH: She is tearful, anxious. LABS: WBC 12, hemoglobin 14, hematocrit 41, platelets 316. Sodium 133, potassium 3.6, chloride 98, carbon dioxide 16, creatinine 1.1, glucose 169, lipase 89. Total bilirubin is normal. AST 32, ALT 35, alkaline phosphatase 129 , total protein 8.5. Urine: Trace leuk esterase. ASSESSMENT/PLAN: 1. Suspected gastrointestinal virus: Respiratory and GI panel are pending. Endorses ill contacts. IV hydration. -LFTs, lipase normal. Check AXR, lactate. 2. Acute on chronic lower back pain: Think this is flared with retching. P.r.n. Tylenol and Lidoderm patch. 3. Acute kidney injury: Creatinine level is 1.1. Again, dry on exam. Will hydrate. 4. Anxiety/depression: anxiety contributing to symptoms. Low-dose Ativan. Continue Prozac. 5. Hypertension: Amlodipine, p.r.n. hydralazine. 6. Chronic pain: resume home medications. 7. Diet: Regular. 8. Deep venous thrombosis prophylaxis: Lovenox. DISPOSITION: Patient warrants observation admission given intractable nausea, vomiting, warranting IV fluids, pain control. /[id number]/MODL MTDD
[2018-12-03] MEDS ORDERED: LIDOCAINE 2% VISCOUS 15 ML UDCUP PO ONE (15:43)
[2018-12-03] MEDS ORDERED: CALCIUM CARBONATE 500 MG CHEWABLE TAB PO PRN (15:43)
[2018-12-03] MEDS ORDERED: MAG HYDROX/AL HYDROX/SIMETH 30 ML UDCUP PO ONE (15:43)
[2018-12-03] MEDS ORDERED: HYOSCYAMINE SULFATE 0.125 MG TAB PO ONE (15:43)
[2018-12-03] MEDS: GABAPENTIN 300 MG CAP PO SCH ×2 (16:17→20:23)
[2018-12-03] MEDS: HYDROCODONE/APAP 5/325 TAB PO PRN ×2 (16:17→23:00)
[2018-12-03] MEDS ORDERED: PATCH REMOVAL 1 EA PATCH TD SCH (21:00)
[2018-12-03] MEDS ORDERED: traZODone 100 MG TAB PO SCH (21:00)
[2018-12-04] MEDS: HYDROCODONE/APAP 5/325 TAB PO PRN ×2 (03:57→11:42)
[2018-12-04] MEDS ORDERED: ENOXAPARIN 40 MG/0.4 ML SYR SC SCH (09:00)
[2018-12-04] MEDS ORDERED: VSL#3 1 EACH CAP PO SCH (09:00)
[2018-12-04] MEDS: LIDOCAINE 4%/MENTHOL 1% PATCH TD SCH (09:22)
[2018-12-04] MEDS: FLUoxetine 20 MG CAP PO SCH (09:23)
[2018-12-04] MEDS: DULoxetine 30 MG CAP PO SCH (09:23)
[2018-12-04] MEDS: GABAPENTIN 300 MG CAP PO SCH ×2 (09:24→17:17)
[2018-12-04 11:08] VITALS: BP 111/67
--- NOTE | 2018-12-04 14:19 | HOSPPROG ---
Hospitalist Progress Note Assessment/Plan: Shantal is a 73 y/o woman w chronic back pain, anxiety, depression who presented w nausea and vomiting. First encounter, chart reviewed. *gastroenteritis due to Norovirus -supportive care -no further diarrhea this afternoon, had one bout this moring -eating and drinking well *acute on chronic back pain -prn Tylenol and Lidoderm patch -wretched her back vomiting/requested [place] at dc due to the pain, will give her a total of 10 at dc *STAN -resolved *HTN -bp stable *anxiety and depression -ongoing, is developing a support system at [facility] *plan: dc home, left her son a voice mail of her admission and discharge. Recommending she eat her meals in her room and to stay well hydrated. Subjective: Fartun feels fine but gets tearful when talking about her son and daughter. She hasn't been in touch w her daughter and was sad her son didn't call her to check on her while in the hospital. Not having significant pain, but some in her back. Objective: Vital Signs Temp Pulse Resp BP Pulse Ox 36.7 C 75 18 111/67 94 12/04/18 11:07 12/04/18 11:07 12/04/18 11:07 12/04/18 11:07 12/04/18 11:07 Microbiology 12/04/18 11:03 Gastrointestinal Tract Panel (PCR) - Final Stool Norovirus Gi/Gii 12/03/18 10:50 Respiratory Panel (PCR) - Final Nasal, Sinus - Swab No Organism Detected By Pcr Laboratory Results 12/04/18 05:22 12/04/18 05:22 12/03/18 12/04/18 12/05/18 05:59 05:59 05:59 Intake Total 1650 Balance 1650 - Physical Exam Constitutional: other (thin) Eyes: PERRL Ears, Nose, Mouth, Throat: hearing normal Cardiovascular: regular rate and rhythym Respiratory: no respiratory distress Gastrointestinal: normoactive bowel sounds, soft, non-tender abdomen Skin: warm Musculoskeletal: full muscle strength Neurologic: AAOx3 Psychiatric: interacting appropriately, anxious ICD10 Worksheet Patient Problems: Problems Problem Status Onset Acute kidney injury Acute Dehydration Acute Vomiting and diarrhea Acute Diarrhea Acute Renal failure Acute
--- NOTE | 2018-12-04 15:11 | ASMTLACE ---
[facility] Length of stay for Answers: 1 day current admission Acuity / Level of Answers: Yes Care: Did the patient have an inpatient admission? Comorbidities - select Answers: Other Notes: HTN all that apply # of Emergency department Answers: 3-4 visits in the last 6 months Social determinants Answers: History of substance abuse (ETOH, street drugs, prescription drugs, etc.) Score: 11 Date Signed: 12/04/2018 03:10 PM Electronically Signed By:Anjali Friedman RN
--- NOTE | 2018-12-04 15:16 | ASMTCMCOM ---
CM Note CM Note Notes: CM spoke w/SEXUAL ABUSE COUNSELLOR, pt will dc home back to . No therapies ordered, pt very tearful stating she needs a ride home, CM will provide cab voucher. No other needs identified. DC Plan: Independent Date Signed: 12/04/2018 03:15 PM Electronically Signed By:Anjali Friedman RN
--- NOTE | 2018-12-04 17:10 | GDS ---
[f rep st] DISCHARGE SUMMARY DISCHARGE DIAGNOSES: 1. Viral gastritis, Norovirus. 2. Acute on chronic back pain. 3. Acute kidney injury. 4. Hypertension. 5. Anxiety and depression. HISTORY OF PRESENT ILLNESS: Briefly Shantal is a 73-year-old woman with chronic back pain, anxiety, depression, who presented with nausea and vomiting, also with ongoing diarrhea. She had a GI PCR sent that was positive for Norovirus. She said her diarrhea has completely stopped. Her nausea and vomiting completely resolved, and she is eating and drinking well. She will be discharged back to her home at [facility]. HOSPITAL COURSE PER PROBLEM: 1. Gastroenteritis due to Norovirus. Supportive care. She is eating and drinking well. 2. Acute on chronic pain. She said, what really helped her pain was a low dose of [place]. I will give her a prescription of 10 of these. 3. Acute kidney injury, resolved. 4. Hypertension. Blood pressure is stable. 5. Anxiety and depression. Stable. She is developing a group of friends who are giving her good support. PENDING LABS: None. CONDITION AT DISCHARGE: Stable. VITAL SIGNS: Blood pressure is 111/67, heart rate is 75, respiratory rate of 18 , O2 sats on room air 94%, temperature is 36.7 Celsius. MEDICATIONS AT DISCHARGE: Please see the EMR. DISCHARGE INSTRUCTIONS: 1. To stay well hydrated. 2. Do not drink or drive while on the pain medication. 3. To try to have her meals delivered to her at her apartment at [facility] until the shedding of virus is complete. /[id number]/MODL MTDD
== END 2018-12-04 17:14 | disposition home or self-care (01) ==
LOC: EDUNIT# → INTOOBSV 10:23 → F3E 11:00
PROVIDERS: ADMIT Internal Medicine; ATTEND Internal Medicine
DX: A08.11 Acute gastroenteropathy due to Norwalk agent (principal); E86.0 Dehydration; M54.5 Low back pain; G89.29 Other chronic pain; N17.9 Acute kidney failure, unspecified; I10 Essential (primary) hypertension; F32.9 Major depressive disorder, single episode, unspecified; F41.9 Anxiety disorder, unspecified; Z96.659 Presence of unspecified artificial knee joint
CPT/HCPCS: 74018; 96361; 96372; 96374; 96375; 99285; G0378; J0360; J1650; J2060; J2405; J2550

== ENCOUNTER 2019-01-06 13:06 | Emergency (ER) | payer OTHER, MEDICARE ==
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
[2019-01-06 15:27] LABS: PLATELET COUNT 261 10^3/uL (150-400)
[2019-01-06 17:41] VITALS: BP 184/95
[2019-01-06] MEDS ORDERED: LORAZEPAM 1 MG PREPACK#4 BTL TAKEHOME ONE (17:42)
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
--- NOTE | 2019-01-07 13:03 | ASMTCMCOM ---
CM Note CM Note Notes: Pt. in FED on 01/06 for voluntary psych evaluation Pt was given a "no stops" taxi voucher back to [facility]. 01/07 a VM was left from [facility] who reported that the pt. did not return home. CM returned the call and [facility] reported that the pt never signed back in but was home safely. [facility] indicated that they were assisting pt with intake for [facility] services. CM to follow as needed. Date Signed: 01/07/2019 01:02 PM Electronically Signed By:Kan Cai LCSW
== END 2019-01-06 17:59 | disposition home or self-care (01) ==
LOC: EDUNIT#
DX: F41.9 Anxiety disorder, unspecified (principal); G47.00 Insomnia, unspecified
CPT/HCPCS: 80305; G0480

== ENCOUNTER 2019-02-12 09:18 | Emergency (ER) | payer OTHER, MEDICARE ==
--- NOTE | 2019-02-12 10:15 | EDPHY ---
H & P Stated Complaint: [facility] fall 02/07 L Rib area pain Time Seen by Provider: 02/12/19 10:04 HPI/ROS: CHIEF COMPLAINT: Left rib pain HISTORY OF PRESENT ILLNESS: This is a 74-year-old female with a history of depression and anxiety. She presents 5 days after falling onto a cement floor with a thin carpet overlying it. She landed on her left side and is complaining of persistent left lower rib pain, worse with deep breathing. She does not feel short of breath. It is difficult for her to move around because of this pain. She has been taking ibuprofen 400 mg every 4 hr while awake since she fell. She did not lose consciousness but thinks that she might have struck her head. She reports being "fuzzy" for the 1st couple of days but this has resolved. No headache. She denies neck or back pain. REVIEW OF SYSTEMS: A ten system review of systems was performed and is negative with the exception of the items mentioned in the HPI. Past medical history: 1. Depression and anxiety Past surgical history: 1. Knee replacement 2. Hysterectomy 3. Breast biopsy Social history: She [place] in [place]. She does not use tobacco products. Denies use of alcohol. General Appearance: Alert. Vital signs reviewed. Blood pressure 134/57 in triage. Eyes: Pupils equal and round, no conjunctival injection, no discharge. Anicteric. ENT, Mouth: Mucous membranes are moist, no oropharyngeal erythema or edema. Neck: Nontender to palpation over the cervical spine in the midline. Respiratory: Lungs are clear to auscultation; no wheezes, rales, or rhonchi. Cardiovascular: Regular rate and rhythm; no murmur, rub, or gallop. Gastrointestinal: Abdomen is soft and nontender, no masses or organomegaly, bowel sounds normal. Skin: Warm and dry, no rashes on exposed skin, normal color. Specifically, no vesicular rash. Thorax: Tender to palpation over the left lower ribcage anteromedially. No crepitus. Back: Nontender to palpation over the thoracolumbar spine. No CVAT. Extremities: No lower extremity edema, no calf tenderness or swelling. Neurological: Alert and oriented. Moving all four extremities easily and equally. ROSE MARIE. EOMI. Tongue midline. Facial expressions symmetric. Psychiatric: Normal affect. - Medical/Surgical History Hx Asthma: No Hx Chronic Respiratory Disease: No Hx Diabetes: No Hx Cardiac Disease: No Hx Renal Disease: No Hx Cirrhosis: No Hx Alcoholism: No Hx HIV/AIDS: No Hx Splenectomy or Spleen Trauma: No Other PMH: Hysterectomy, knee replacement, depression, anxiety, breast biopsy - Social History Smoking Status: Light smoker Constitutional: Initial Vital Signs Temperature (C) 36.5 C 02/12/19 09:24 Heart Rate 78 02/12/19 09:24 Respiratory Rate 18 02/12/19 09:24 Blood Pressure 134/57 H 02/12/19 09:24 O2 Sat (%) 95 02/12/19 09:24 O2 Delivery Mode Room Air Allergies/Adverse Reactions: diphenhydramine [From Benadryl] Allergy (Verified 01/06/19 15:35) Home Medications: Medication Instructions Recorded DULoxetine [Cymbalta 30 MG (*)] 30 mg PO DAILY 10/08/18 traZODone [traZODONE 100MG (*)] 100 mg PO HS 10/08/18 Ondansetron Odt [Zofran Odt 4 mg 4 mg PO Q4 PRN #12 tab 10/27/18 (*)] amLODIPine BESYLATE [Norvasc 2.5 2.5 mg PO DAILY #30 tab 10/27/18 mg (*)] FLUoxetine [Prozac 20 MG (*)] 20 mg PO DAILY 12/03/18 Gabapentin [Neurontin 300 MG (*)] 300 mg PO TID 12/03/18 Lact Cmb2/S.thermophl/Bif Cmb1 2 each PO DAILY 12/03/18 [Vsl#3 Cap (*)] Acetaminophen [Tylenol 325mg (*)] 650 mg PO Q4HRS PRN tab 12/04/18 Hydrocodone/APAP 5/325 [[place] 1 tab PO Q6 PRN #10 tab 12/04/18 5/325 (*)] Lidocaine 4%/Menthol 1% [[place] 1 patch TD DAILY patch 12/04/18 Lidocaine/Menthol 4%/1% Patch (*)] Patch Removal 1 ea TD DAILY21 patch 12/04/18 Hydrocodone/APAP 5/325 [[place] 1 - 2 tab PO Q4 PRN #10 tab 02/12/19 5/325 (RX)] Lidocaine 4%/Menthol 1% [[place] 1 patch TD DAILY #7 patch 02/12/19 Lidocaine/Menthol 4%/1% Patch (*)] Medical Decision Making ED Course/Re-evaluation: Left rib pain after falling five days ago. Chest xray shows nondisplaced 7th left rib fracture. No pneumothorax. I reviewed the films and the radiology report. Pain control and appropriate NSAID use in elderly reviewed with her. Small quantity of [place] prescribed with precautions. She is not hypoxic, no signs of pneumonia. Incentive spirometry advised. She will follow up with her PCP. Differential Diagnosis: I considered a differential diagnosis that includes but is not limited to rib contusion, rib fracture, pneumothorax, coronary artery disease, shingles. - Data Points Medications Given: Discontinued Medications Miscellaneous Medication (Icy Hot Lidocaine/Menthol 4%/1% Patch) 1 patch TD EDNOW ONE Stop: 02/12/19 11:20 Last Admin: 02/12/19 11:27 Dose: 1 patch Departure - Departure Disposition: Home, Routine, Self-Care Clinical Impression: Left rib fracture Qualifiers: Encounter type: initial encounter Rib fracture type: single rib Fracture type: closed Qualified Code(s): S22.32XA - Fracture of one rib, left side, initial encounter for closed fracture Condition: Good Instructions: Rib Fracture (ED) Additional Instructions: Take 2 deep breaths every hour while awake.Adult Pain & Fever Control: We recommend Acetaminophen (Tylenol) and Ibuprofen (Motrin,Advil) for pain and fever control. When fever is high or pain severe, both drugs can be used at the same time, but at different intervals. Please note the time differences. Your dose is: Acetaminophen [650]mg every 4 to 6 hours Ibuprofen [400]mg every [6-8] hours with food OR Note: do not take Acetaminophen with Hydrocodone (Vicodin, Lortab) or Oycodone (Percocet). These medications also contain Acetaminophen. No more than 3000mg of Acetaminophen should be taken in 24 hours (for an adult). Referrals: Anusha Schwartz MD [Primary Care Provider] - As per Instructions Stand Alone Forms: Narcotic Guidelines Prescriptions: Hydrocodone/APAP 5/325 [[place] 5/325 (RX)] 1 - 2 tab PO Q4 PRN #10 tab PRN Reason: pain Lidocaine 4%/Menthol 1% [Icy Hot Lidocaine/Menthol 4%/1% Patch (*)] 1 patch TD DAILY #7 patch
[2019-02-12] MEDS ORDERED: LIDOCAINE 4%/MENTHOL 1% PATCH TD ONE (11:19)
[2019-02-12 11:39] VITALS: BP 119/81
[2019-02-12] MEDS ORDERED: PATCH REMOVAL 1 EA PATCH TD SCH (21:00)
== END 2019-02-12 11:39 | disposition home or self-care (01) ==
DX: S22.32XA Fracture of one rib, left side, initial encounter for closed fracture (principal); F32.9 Major depressive disorder, single episode, unspecified; F41.9 Anxiety disorder, unspecified; W19.XXXA Unspecified fall, initial encounter; Y92.129 Unspecified place in nursing home as the place of occurrence of the external cause

== ENCOUNTER 2019-03-23 20:54 | Inpatient (IN) | payer OTHER, MEDICARE ==
[2019-03-23] MEDS ORDERED: NS 1,000 ML IV ONE (21:00)
[2019-03-23] MEDS ORDERED: KETAMINE 200 MG/20 ML VIAL ONE (21:03)
[2019-03-23 21:08] LABS: PLATELET COUNT 378 10^3/uL (150-400)
[2019-03-23] MEDS ORDERED: KETAMINE 200 MG/20 ML VIAL IV ONE ×2 (21:14→21:34)
[2019-03-23 21:18] LABS: PROTIME(PATIENT) 12.8 SEC (12.0-15.0)
--- NOTE | 2019-03-23 22:20 | EDPHY ---
H & P Time Seen by Provider: 03/23/19 20:59 HPI/ROS: HPI Altered mental status. 74-year-old female by ambulance from [facility]. The residents get a daily welfare check. Approximately 1 hr prior to arrival the staff from [facility] found the patient in bed with altered mental status. She was A&O x1 according to EMS. She will not answer questions according to EMS. On my evaluation, she is flailing her arms and legs around. On my evaluation she does answer yes and no to questions. She is oriented to person only. She denies headache. Denies neck pain. Denies abdominal pain or chest pain. I am unable to get further history from her. ROS: Unable to accurately obtained secondary to the patient's altered mental status. Past medical history: Hysterectomy, knee replacement, depression, anxiety, breast biopsy, hypertension. Social history: Vague history of alcohol abuse. Unknown if she smokes. History of seizures. Physical Exam: General Appearance: Alert, she is agitated, she is flailing her arms and legs. Not hostile towards staff. She answers no to all questions. This patient appears generally well-hydrated and well-nourished. Head: Normocephalic atraumatic. Eyes: Pupils equal and round and reactive to light at 3-2 mm bilaterally, no pallor or injection. No lid edema, erythema or injection. No photophobia. ENT, Mouth: Mucous membranes are moist. The pharyngeal tissues are unremarkable. No edema or swelling. No asymmetry suggestive of abscess. No erythema or exudates, no tongue lacerations or abrasions.. Respiratory: There are no retractions, lungs are clear to auscultation anteriorly with good air movement bilaterally. No tachypnea. Cardiovascular: Regular rate and rhythm. No murmur. Gastrointestinal: Abdomen is soft and without apparent tenderness, no masses, bowel sounds are present. No focal tenderness at McBurney's point. No Yuan sign. Neurological: Motor sensory function is grossly intact. Cranial nerves are grossly normal. Skin: Warm and dry, no rashes. Right anterior mid leg this appears acute. She may have sustained this during transport. She has got what appeared to be old bruises on both legs Musculoskeletal: Neck is supple, she does not have apparent pain on flexion of her neck. No apparent midline cervical, thoracic, lumbar or sacral tenderness on palpation. Extremities are symmetrical. All joints range without pain or impingement. Psychiatric: Agitation as above. Database: EKG: EKG time is 9:38 p.m.; EKG shows a narrow complex normal sinus rhythm with a ventricular rate of 79. The HI, QRS, intervals are within normal limits. QT interval borderline prolonged. There are no ST-T wave changes indicative of ischemic or injury pattern. No evidence of right heart strain. Interpreted by me. Imaging: CT head without contrast: Negative. Results were discussed with staff radiologist Dr. Elijah Somers. Chest x-ray AP portable: Patchy ground-glass early infiltrative process right upper lobe and right middle lobe suggestive of early pneumonia. No pneumothorax. Interpreted by me. Procedures: Procedure: Procedural sedation. Indication: Altered mental status, agitation, need for CT of brain. A pre-sedation evaluation was completed on the patient just prior to the procedure. Patient is an appropriate candidate for procedural sedation with ASA class 1E. Mallampati class I. Patient assessed as 332. The risks of the sedation were discussed including but not limited to dysrhythmia, need for airway intervention or general anesthesia, disability, ; and verbal consent obtained. A timeout was observed and patient's identity confirmed. The patient was sedated with 60 mg of IV ketamine given slow push. The patient was monitored with continuous pulse oximetry, capnography, and gambling monitor. There were no complications and no significant hypoxemia. I remained at the bedside for the sedation. The total time I spent in the procedural sedation was [ ]. Emergency department course: Triage vital signs reviewed. She is hypertensive. Vital signs are otherwise within normal limits. She is afebrile IV was started. The patient was started on IV normal saline with 1 L to be given over 1 hr. Secondary to my concern about an intracranial process, the patient was given ketamine as above for sedation so that we get a adequate CT imaging of her brain. On return from CT of [place] catheter was placed. An EKG was obtained and reviewed by myself. 10:20 p.m., rectal temperature is 36.6 degrees. The patient's mental status has not changed significantly. She is still answering simple yes and no questions she remains mildly agitated but has improved. 11:20 p.m., after review of chest x-ray, blood cultures ordered, 2 g of IV Rocephin and 500 mg of IV azithromycin ordered for treatment of probable pneumonia. Discussed case with hospitalist, Dr. Belle. She accepts this patient for admission to the hospitalist service, step-down unit. I do not believe she is meningitic. 11:30 p.m. I did discuss performing a lumbar puncture with Dr. Belle. However, this would require significant sedation. Dr. Belle evaluated the patient in the emergency department. At this time we will hold obtaining an LP emergently. The patient was admitted in stable condition to the step-down unit. IV antibiotics were started in the emergency department. Differential Diagnosis: The differential diagnosis on this patient includes but is not limited to toxic metabolic encephalopathy, intracranial bleeding, pneumonia, seizure. This represents a partial list of diagnoses considered. These considerations are based on history, physical exam, past history, reassessment and diagnostic testing. Smoking Status: Light smoker Constitutional: Initial Vital Signs Temperature (C) 36.8 C 03/23/19 20:59 Blood Pressure 157/71 H 03/23/19 20:59 O2 Delivery Mode Non-Rebreather Mask O2 (L/minute) 15 Allergies/Adverse Reactions: diphenhydramine [From Benadryl] Allergy (Verified 03/23/19 21:01) Home Medications: Medication Instructions Recorded DULoxetine [Cymbalta 30 MG (*)] 30 mg PO DAILY 10/08/18 Ondansetron Odt [Zofran Odt 4 mg 4 mg PO Q4 PRN #12 tab 10/27/18 (*)] FLUoxetine [Prozac 20 MG (*)] 20 mg PO DAILY 12/03/18 Gabapentin [Neurontin 300 MG (*)] 300 mg PO TID 12/03/18 Acetaminophen [Tylenol 325mg (*)] 650 mg PO Q4HRS PRN tab 12/04/18 Baclofen [Baclofen 10 mg (*)] 10 mg PO BID PRN 03/24/19 amLODIPine BESYLATE [Amlodipine 5 mg PO DAILY 03/24/19 Besylate] Medical Decision Making - Data Points Laboratory Results: Laboratory Results 03/23/19 21:00 03/23/19 21:00 Medications Given: Enoxaparin Sodium (Lovenox) 40 mg SC DAILY KIMBERLY Stop: 09/20/19 08:59 Last Admin: 03/24/19 09:23 Dose: 40 mg Hydromorphone HCl (Dilaudid) 0.2 - 0.4 mg IVP Q2HRS PRN PRN Reason: Pain, Severe Unable to Take PO Stop: 04/03/19 01:01 Last Admin: 03/24/19 21:19 Dose: 0.4 mg Sodium Chloride (Ns) 1,000 mls @ 75 mls/hr IV CONT KIMBERLY Stop: 09/19/19 23:29 Last Admin: 03/24/19 15:40 Dose: 1,000 mls Ceftriaxone Sodium/Dextrose (Rocephin 1 Gm (Premix)) 50 mls @ 100 mls/hr IV DAILY KIMBERLY PRN Reason: Protocol Stop: 04/23/19 08:59 Last Admin: 03/24/19 09:23 Dose: 50 mls Doxycycline Hyclate 100 mg/ (Sodium Chloride) 260 mls @ 260 mls/hr IV Q12HRS KIMBERLY PRN Reason: Protocol Stop: 04/23/19 08:59 Last Admin: 03/24/19 21:02 Dose: 260 mls Lorazepam (Ativan Injection) 0.5 - 1 mg IVP Q8HRS PRN PRN Reason: Agitation, Acute Stop: 09/19/19 23:28 Last Admin: 03/24/19 00:53 Dose: 1 mg Discontinued Medications Sodium Chloride (Ns) 1,000 mls @ 0 mls/hr IV ONCE ONE; Wide Open PRN Reason: Protocol Stop: 03/23/19 21:01 Last Admin: 03/23/19 21:08 Dose: 1,000 mls Azithromycin 500 mg/ Dextrose 255 mls @ 255 mls/hr IV EDNOW ONE PRN Reason: Protocol Stop: 03/24/19 00:19 Last Admin: 03/23/19 23:57 Dose: Not Given Cefepime HCl 1 gm/ Sodium (Chloride) 50 mls @ 100 mls/hr IV Q12HRS KIMBERLY PRN Reason: Protocol Stop: 04/22/19 23:44 Last Admin: 03/24/19 00:54 Dose: 50 mls Sodium Chloride (Ns) 1,000 mls @ 3,000 mls/hr IV ONCE ONE Stop: 03/24/19 01:03 Last Admin: 03/24/19 01:45 Dose: 1,000 mls Ketamine HCl 5 mg/ Syringe 0.1 mls @ 6 mls/hr IVP ONCE ONE Stop: 03/24/19 02:42 Last Admin: 03/24/19 07:34 Dose: Not Given Ketamine HCl 5 mg/ Syringe 0.5 mls @ 30 mls/hr IVP ONCE ONE Stop: 03/24/19 03:31 Last Admin: 03/24/19 07:34 Dose: Not Given Ketamine HCl (Ketamine) 60 mg IV ONCE ONE Stop: 03/23/19 21:15 Last Admin: 03/23/19 21:14 Dose: 60 mg Ketamine HCl (Ketamine) 20 mg IV ONCE ONE Stop: 03/23/19 21:35 Last Admin: 03/23/19 21:39 Dose: 20 mg Point of Care Test Results: Chemistry 03/23/19 21:41 POC Troponin I 0.02 ng/mL ng/mL (0.00-0.08) Departure - Departure Disposition: [facility] Inpatient Acute Clinical Impression: Altered mental status, Pneumonia, Leukocytosis
[2019-03-23] MEDS ORDERED: AZITHROMYCIN IV 500 MG in D5W 250 ML IV ONE (23:20)
[2019-03-23] MEDS ORDERED: ACETAMINOPHEN 650 MG SUPP PR PRN (23:29)
--- NOTE | 2019-03-23 23:41 | CPEKG ---
Test Reason : OPEN Blood Pressure : / mmHG Vent. Rate : 079 BPM Atrial Rate : 080 BPM P-R Int : 155 ms QRS Dur : 095 ms QT Int : 448 ms P-R-T Axes : 086 -16 016 degrees QTc Int : 514 ms Sinus rhythm Borderline left axis deviation Prolonged QT interval Confirmed by Emil Sellers ([id number] on 03/23/2019 11:41:05 PM Referred By: Emil Sellers Confirmed By:Emil Sellers
[2019-03-23] MEDS ORDERED: CEFEPIME HCL 1 GM in NS 50 ML IV SCH (23:45)
[2019-03-24] MEDS ORDERED: NS 1,000 ML IV ONE (00:44)
[2019-03-24] MEDS: LORazepam 2 MG/ML INJ IVP PRN (00:53)
[2019-03-24] MEDS: HYDROmorphONE/DILAUDID 1 MG/ML INJ IVP PRN ×3 (02:15→21:19)
[2019-03-24] MEDS ORDERED: KETAMINE 5 MG in SYRINGE 0 ML IVP ONE ×2 (02:41→03:30)
[2019-03-24 06:47] LABS: PLATELET COUNT 257 10^3/uL (150-400)
--- NOTE | 2019-03-24 06:48 | PDGENHP ---
History and Physical - Chief Complaint Altered mental status - History of Present Illness Source-patient is not able to provide any history. She is confused possibly aphasic. She is however moving all her extremities. EMR was reviewed and case discussed with ED provider. HPI - this is a 74-year-old female with past medical history significant for anxiety, depression, chronic pain, osteoarthritis, HTN who presents emergency department today from her apartment at [facility] after being found altered and restless following a nightly welfare check. Patient was last seen yesterday afternoon in her usual state of health. This evening staff went to check on the patient and found her to be flailing her extremities unable to respond to questions appropriately except to repeat yes or no. Patient required sedation with ketamine home to complete a head CT due to her persistent movement. Following this patient again returned to having restless activity complaining of pain but not really able to localize. Patient with multiple bruises to her forehead arms and anterior lower leg in various stages of healing. Patient is unable to respond to she has had a fall or head injury. Patient does have a history of multiple narcotics sedatives. It is unclear if patient had any lapse in her medication doses. History Information - Allergies/Home Medication List Allergies/Adverse Reactions: diphenhydramine [From Benadryl] Allergy (Verified 03/23/19 21:01) Home Medications: DULoxetine [Cymbalta 30 MG (*)] 30 mg PO DAILY 10/08/18 [Last Taken 10/17/18] traZODone [traZODONE 100MG (*)] 100 mg PO HS 10/08/18 [Last Taken 10/17/18] FLUoxetine [Prozac 20 MG (*)] 20 mg PO DAILY 12/03/18 [Last Taken Unknown] Gabapentin [Neurontin 300 MG (*)] 300 mg PO TID 12/03/18 [Last Taken Unknown] Lact Cmb2/S.thermophl/Bif Cmb1 [Vsl#3 Cap (*)] 2 each PO DAILY 12/03/18 [Last Taken Unknown] Hydrochlorothiazide 25 mg PO TID PRN 03/24/19 [Last Taken Unknown] amLODIPine BESYLATE [Amlodipine Besylate] 5 mg PO DAILY 03/24/19 [Last Taken Unknown] I have personally reviewed and updated: family history, medical history, social history, surgical history Past Medical History: See HPI List - Past Medical History arthritis, hypertension Additional medical history: Chronic joint pain, anxiety and depression - Surgical History Additional surgical history: Partial hysterectomy. Cholecystectomy. Breast biopsy - Family History Additional family history: Father had colon cancer in his 60s of coronary artery disease. Mother had metastatic breast cancer - Social History Smoking Status: Light smoker Additional social history: Unable to obtain social history due to AMS. Patient is . Lives independently at [facility]. Review of Systems Review of Systems: ROS: 10pt was reviewed & negative except for what was stated in HPI & below ( Unable to obtain due to patient's mentation.) Physical Exam Physical Exam: Selected Entries 03/23/19 03/24/19 20:59 01:00 Blood Pressure Automatic Method Heart Rate 78 O2 Sat (%) 98 Temperature (C) 36.8 C Blood Pressure 157/71 H 134/65 H Mean Arterial 99 88 Pressure (MAP) O2 (L/minute) 3 O2 Delivery Room Air Nasal Cannula Mode Temperature Axillary Source Cardiac Rhythm Normal Sinus Rhythm Constitutional: uncomfortable, other (Patient appears uncomfortable. She is crying out how but unable to localize her site of pain.) Eyes: PERRL (Decreased reactivity light bilaterally but symmetric.), anicteric sclera, EOMI, No scleral injection Ears, Nose, Mouth, Throat: other (No nasal discharge.), No poor dentition, No dry mucous membranes Cardiovascular: regular rate and rhythym, no murmur, rub, or gallop (Exam limited due to patient's persistent movement and crying out "ow".), pulses symmetric bilaterally, No edema Peripheral Pulses: 1+: dorsalis-pedis (R), dorsalis-pedis (L) Respiratory: no respiratory distress, no rales or rhonchi, reduced air movement , No inspiratory crackles, No respiratory distress Gastrointestinal: normoactive bowel sounds, soft, non-tender abdomen, no palpable masses, No distension Genitourinary: no bladder tenderness, roman in urethra Skin: warm, normal color, abrasion (Small skin tear anterior padilla), other ( Multiple contusions to anterior shins forearms head.), No rash Musculoskeletal: full muscle strength (Patient moves all extremities with grossly normal strength.) Neurologic: other (Limited due to patient's AMS. She does occasionally answer yes or I do not know.), No AAOx3, No facial droop Psychiatric: anxious, agitated (Patient is very restless.) Lab Data & Imaging Review 03/24/19 06:15 03/23/19 21:00 WBC 20.18 10^3/uL (3.80-9.50) H 03/23/19 21:00 RBC 5.24 10^6/uL (4.18-5.33) 03/23/19 21:00 Hgb 16.2 g/dL (12.6-16.3) 03/23/19 21:00 Hct 46.0 % (38.0-47.0) 03/23/19 21:00 MCV 87.8 fL (81.5-99.8) 03/23/19 21:00 MCH 30.9 pg (27.9-34.1) 03/23/19 21:00 MCHC 35.2 g/dL (32.4-36.7) 03/23/19 21:00 RDW 13.0 % (11.5-15.2) 03/23/19 21:00 Plt Count 378 10^3/uL (150-400) 03/23/19 21:00 MPV 11.0 fL (8.7-11.7) 03/23/19 21:00 Neut % (Auto) 84.1 % (39.3-74.2) H 03/23/19 21:00 Lymph % (Auto) 8.4 % (15.0-45.0) L 03/23/19 21:00 Coffey % (Auto) 7.0 % (4.5-13.0) 03/23/19 21:00 Eos % (Auto) 0.0 % (0.6-7.6) L 03/23/19 21:00 Baso % (Auto) 0.1 % (0.3-1.7) L 03/23/19 21:00 Nucleat RBC Rel Count 0.0 % (0.0-0.2) 03/23/19 21:00 Absolute Neuts (auto) 16.95 10^3/uL (1.70-6.50) H 03/23/19 21:00 Absolute Lymphs (auto) 1.70 10^3/uL (1.00-3.00) 03/23/19 21:00 Absolute Monos (auto) 1.41 10^3/uL (0.30-0.80) H 03/23/19 21:00 Absolute Eos (auto) 0.00 10^3/uL (0.03-0.40) L 03/23/19 21:00 Absolute Basos (auto) 0.03 10^3/uL (0.02-0.10) 03/23/19 21:00 Absolute Nucleated RBC 0.00 10^3/uL (0-0.01) 03/23/19 21:00 Immature Gran % 0.4 % (0.0-1.1) 03/23/19 21:00 Immature Gran # 0.09 10^3/uL (0.00-0.10) 03/23/19 21:00 PT 12.8 SEC (12.0-15.0) 03/23/19 21:00 INR 1.00 (0.83-1.16) 03/23/19 21:00 APTT 23.7 SEC (23.0-38.0) 03/23/19 21:00 VBG Lactic Acid 2.3 mmol/L (0.7-2.1) H 03/24/19 06:15 Sodium 138 mEq/L (135-145) 03/23/19 21:00 Potassium 3.8 mEq/L (3.5-5.2) 03/23/19 21:00 Chloride 102 mEq/L (97-110) 03/23/19 21:00 Carbon Dioxide 19 mEq/l (22-31) L 03/23/19 21:00 Anion Gap 17 mEq/L (6-14) H 03/23/19 21:00 BUN 24 mg/dL (7-23) H 03/23/19 21:00 Creatinine 0.8 mg/dL (0.6-1.0) 03/23/19 21:00 Estimated GFR > 60 03/23/19 21:00 Glucose 121 mg/dL (70-100) H 03/23/19 21:00 Calcium 10.5 mg/dL (8.5-10.4) H 03/23/19 21:00 Total Bilirubin 0.4 mg/dL (0.1-1.4) 03/23/19 21:00 Conjugated Bilirubin 0.0 mg/dL (0.0-0.5) 03/23/19 21:00 Unconjugated Bilirubin 0.4 mg/dL (0.0-1.1) 03/23/19 21:00 AST 45 IU/L (14-46) 03/23/19 21:00 ALT 40 IU/L (9-52) 03/23/19 21:00 Alkaline Phosphatase 151 IU/L (38-126) H 03/23/19 21:00 POC Troponin I 0.02 ng/mL (0.00-0.08) 03/23/19 21:41 Total Protein 8.4 g/dL (6.3-8.2) H 03/23/19 21:00 Albumin 5.0 g/dL (3.5-5.0) 03/23/19 21:00 Urine Color YELLOW 03/23/19 21:50 Urine Appearance HAZY 03/23/19 21:50 Urine pH 5.0 (5.0-7.5) 03/23/19 21:50 Ur Specific Mathias 1.017 (1.002-1.030) 03/23/19 21:50 Urine Protein 2+ (NEGATIVE) H 03/23/19 21:50 Urine Ketones NEGATIVE (NEGATIVE) 03/23/19 21:50 Urine Blood 2+ (NEGATIVE) H 03/23/19 21:50 Urine Nitrate NEGATIVE (NEGATIVE) 03/23/19 21:50 Urine Bilirubin NEGATIVE (NEGATIVE) 03/23/19 21:50 Urine Urobilinogen NEGATIVE EU (0.2-1.0) 03/23/19 21:50 Ur Leukocyte Esterase NEGATIVE (NEGATIVE) 03/23/19 21:50 Urine RBC 1-3 /hpf (0-3) 03/23/19 21:50 Urine WBC 1-3 /hpf (0-3) 03/23/19 21:50 Ur Epithelial Cells NONE SEEN /lpf (NONE-1+) 03/23/19 21:50 Amorphous Sediment PRESENT /hpf (NONE-1+) 03/23/19 21:50 Hyaline Casts 1-5 /lpf (0-1) 03/23/19 21:50 Urine Mucus TRACE /lpf (NONE-1+) 03/23/19 21:50 Urine Glucose NEGATIVE (NEGATIVE) 03/23/19 21:50 Urine Opiates Screen NEGATIVE (NEGATIVE) 03/23/19 21:50 Urine Barbiturates NEGATIVE (NEGATIVE) 03/23/19 21:50 Ur Phencyclidine Scrn NEGATIVE (NEGATIVE) 03/23/19 21:50 Ur Amphetamine Screen NEGATIVE (NEGATIVE) 03/23/19 21:50 U Benzodiazepines Scrn NEGATIVE (NEGATIVE) 03/23/19 21:50 Urine Cocaine Screen NEGATIVE (NEGATIVE) 03/23/19 21:50 U Marijuana (THC) Screen NEGATIVE (NEGATIVE) 03/23/19 21:50 Ethyl Alcohol < 10 mg/dL (0-10) 03/23/19 21:00 Imaging Review: AP chest x-ray 2216 hours History: Trauma. Altered mental status. Findings: Comparison to 02/12/2019. Heart size and pulmonary vasculature remain normal. There is haziness right upper lobe could represent pneumonitis or pneumonia possibly from aspiration. Peribronchial cuffing is also seen right perihilar region and right lung base. There is also hazy increased markings left mid lung laterally. Represent area of pneumonitis. There are no effusions or evidence of pneumothorax. Osseous structures appear to be intact. Impression: 1. Hazy groundglass increased markings right upper lobe and left midlung. Consider pneumonitis or early pneumonia. Consider aspiration. 2. Peribronchial cuffing in the perihilar region more prominent on the right and could be related to some underlying bronchitis or viral process. Dictated By: Elijah Somers MD CT Brain Without Contrast 2120 hours History: Altered mental status. Possible trauma. Technique: Axial computed tomographic images of the brain without contrast. Images were reconstructed using thin slices and reconstructed in multiple planes. Dose reduction techniques were utilized. Comparison the prior study from 10/18/2018. Findings: Ventricles, cisterns, and sulci are widened consistent with stable mild to moderate atrophy. No hydrocephalus, masses, midline shift/herniation, or subdural hematomas. No intraparenchymal hemorrhage or mass effect. Stable mild hypodensities are seen in the white matter of bilateral cerebral hemispheres. There is no acute peripheral cerebral infarct seen. Stable mild arteriosclerotic calcifications are noted associated with distal ICA in the parasellar location bilaterally. Bone windows demonstrate no displaced fractures. Paranasal sinuses and mastoid air cells are clear. Impression: 1. Stable mild to moderate atrophy. 2. No hemorrhage, mass effect, or definite acute peripheral infarct. 3. Stable mild nonspecific hypodensities in the white matter of bilateral cerebral hemispheres. Differential diagnosis includes microvascular ischemic disease, post-infectious/ post-inflammatory sequela, atypical demyelinating disease, or migraine-related sequela. Small white matter lacunar infarcts may also have this appearance. If symptoms worsen, additional imaging may be necessary. Findings discussed with Dr. Azam Alonso answering for Emil Sellers MD at 21:51 hour , 03/23/2019. Dictated By: Elijah Somers MD EKG additional interpertation: NSR in the 70s. No acute ST changes. Lad. QTC is 514. Assessment & Plan Assessment: this is a 74-year-old female with past medical history significant for anxiety, depression, chronic pain, osteoarthritis, HTN who presents emergency department today from her apartment at [facility] after being found altered and restless following a nightly welfare check. #acute encephalopathy - DDx including infectious source with RUL PNA, polypharmacy, CVA, concussive syndrome, medication withdrawal vs less likely meningitis. Patient quite restless until she received some pain medication. She is moving all extremities, moves about her bed and includes neck flexion without significant discomfort or evidence of meningismus. Patient currently would be a candidate for an LP as she is quite restless. Patient will be started on cefepime at this time. d/c azithro/rocephin 2/2 QT prolongation. U tox is negative. Alcohol level negative. Patient without any evidence of focal deficits. Consider additional imaging in the morning pending reassessment by day provider. #Pneumonia (Acute) - right upper lobe with possibility for an aspiration pneumonia night is versus pneumonia. Patient with a prolonged QTc. Rocephin and azithromycin discontinued in favor of cefepime at this time. Patient does have a leukocytosis lactic acidosis. Blood cultures x2 are pending. UA was unremarkable. Patient is receiving IV fluid hydration. #Leukocytosis (Acute) - likely secondary to pneumonia versus component of stress response. IV fluids, antibiotics as noted above and repeat CBC in the morning. #QTC prolongation - will avoid qt prolonging agents. antibiotic change as noted above. #acute on chronic back pain - Patient unable to get comfortable and moves mostly legs about. no focal deficits. patient given dose of dilaudid with improvement in her sx. holding remainder sedatives/narcotics at this time. #benign essential HTN - BPs currently acceptable. continue to monitor. resume home meds when rec available. FEN - IVF. electrolyte monitoring an replacement prn. PPX - SCDS. lovenox. COR - FULL Dispo - Patient admitted to inpatient status on SDU floor anticipateing < 2 midnight stay given severity of patient symptoms.
--- NOTE | 2019-03-24 09:05 | HOSPPROG ---
Hospitalist Progress Note Assessment/Plan: 74F found down and confused with a R sided pna. It is possible the pneumonia caused her confusion, but also possible something else happened such as a seizure which caused her to aspirate. # encephalopathy, suspect metabolic - possible this represents a stroke or seizure but seems less likely at this point - also possible this is toxic given her medication list - slightly improved today although still very confused not knowing where she is or where she lives # pneumonia - will change abx to rocephin/doxy - check legionella, strep pna - recheck CXR tomorrow am # severe sepsis d/t pna with lactic acidosis and encephalopathy # QTc prolongation # chronic back pain # htn - home meds Subjective: seems better today on my assessment; still not oriented Objective: Vital Signs Temp Pulse Resp BP Pulse Ox 36.9 C 68 17 141/82 H 98 03/24/19 08:00 03/24/19 08:00 03/24/19 08:00 03/24/19 08:00 03/24/19 08:00 Laboratory Results 03/24/19 06:15 03/24/19 06:15 03/23/19 03/24/19 03/25/19 05:59 05:59 05:59 Intake Total 2359 Output Total 1025 Balance 1334 PT 12.8 SEC (12.0-15.0) 03/23/19 21:00 INR 1.00 (0.83-1.16) 03/23/19 21:00 chart reviewed CTH reviewed CXR personally reviewed - Physical Exam Constitutional: no apparent distress Cardiovascular: regular rate and rhythym, no murmur, rub, or gallop Respiratory: no respiratory distress, no rales or rhonchi, clear to auscultation Gastrointestinal: soft, non-tender abdomen, no palpable masses, No guarding, No rebound, No distension ICD10 Worksheet Patient Problems: Problems Problem Status Onset Renal failure Acute Acute kidney injury Acute Diarrhea Acute Vomiting and diarrhea Acute Dehydration Acute Anxiety reaction Acute Insomnia Acute Left rib fracture Acute Altered mental status Acute Pneumonia Acute Leukocytosis Acute
[2019-03-24] MEDS: ENOXAPARIN 40 MG/0.4 ML SYR SC SCH (09:23)
[2019-03-24] MEDS: DOXYCYCLINE INJ 100 MG in NS 250 ML IV SCH ×2 (09:38→21:02)
--- NOTE | 2019-03-24 11:24 | ASMTCMCOM ---
CM Note CM Note Notes: Patient admitted after being found at her apartment at [facility] [place] with AMS. She has a R-sided PNA, unclear if this is what caused her confusion. She also has a hx of chronic pain, anxiety and depression and has been seen here 7 times in the last 6 months. She lives independently at [facility] [place]. SELIN Michelle spoke w her son Jalil who is out of town. I called her daughter Gisella who didn't answer. Discharge needs TBD, although patient usually discharges back to with no services. CM available for any needs. Date Signed: 03/24/2019 11:24 AM Electronically Signed By:Paola Tobar RN
[2019-03-24] MEDS: NS 1,000 ML IV SCH (15:40)
[2019-03-25] MEDS: HYDROmorphONE/DILAUDID 1 MG/ML INJ IVP PRN ×3 (03:14→21:29)
[2019-03-25 05:08] LABS: PLATELET COUNT 211 10^3/uL (150-400)
[2019-03-25] MEDS: NS 1,000 ML IV SCH (05:34)
[2019-03-25] MEDS ORDERED: PROTOCOL POTASSIUM 1 DOSE MISC PRN (06:25)
[2019-03-25] MEDS ORDERED: POTASSIUM CL 10 MEQ TAB PO ONE ×2 (08:12→21:36)
[2019-03-25] MEDS: ENOXAPARIN 40 MG/0.4 ML SYR SC SCH (08:37)
[2019-03-25] MEDS: DOXYCYCLINE INJ 100 MG in NS 250 ML IV SCH ×2 (08:37→21:13)
--- NOTE | 2019-03-25 09:51 | HOSPPROG ---
Hospitalist Progress Note Assessment/Plan: 74F found down and confused with a R sided pna. It is possible the pneumonia caused her confusion, but also possible something else happened such as a seizure which caused her to aspirate. # encephalopathy, suspect metabolic - possible this represents a stroke or seizure but seems less likely at this point - also possible this is toxic given her medication list; will decrease her baclofen but this needs to be followed closely - continues to slowly # pneumonia - cont rocephin/doxy - legionella, strep pna pending # severe sepsis d/t pna with lactic acidosis and encephalopathy # QTc prolongation # chronic back pain # htn - home meds Subjective: feels less confused today Objective: Vital Signs Temp Pulse Resp BP Pulse Ox 36.5 C 68 15 151/74 H 94 03/25/19 07:50 03/25/19 07:50 03/25/19 07:50 03/25/19 07:50 03/25/19 07:50 Laboratory Results 03/25/19 04:42 03/25/19 04:42 03/24/19 03/25/19 03/26/19 05:59 05:59 05:59 Intake Total 2359 2586 Output Total 1025 800 Balance 1334 1786 PT 12.8 SEC (12.0-15.0) 03/23/19 21:00 INR 1.00 (0.83-1.16) 03/23/19 21:00 high risk with ongoing AMS - Physical Exam Constitutional: uncomfortable Cardiovascular: regular rate and rhythym, no murmur, rub, or gallop Respiratory: no respiratory distress, no rales or rhonchi, clear to auscultation Gastrointestinal: soft, non-tender abdomen, no palpable masses, No guarding, No rebound, No distension ICD10 Worksheet Patient Problems: Problems Problem Status Onset Renal failure Acute Acute kidney injury Acute Diarrhea Acute Vomiting and diarrhea Acute Dehydration Acute Anxiety reaction Acute Insomnia Acute Left rib fracture Acute Altered mental status Acute Pneumonia Acute Leukocytosis Acute
[2019-03-25] MEDS: traMADol 50 MG TAB PO PRN ×2 (10:25→16:27)
[2019-03-25] MEDS: LORazepam 2 MG/ML INJ IVP PRN (13:06)
--- NOTE | 2019-03-25 13:26 | ASMTCMCOM ---
CM Note CM Note Notes: Pt was transfered to . SIGNAL MECHANIC/OT recommending inpatient rehab, PT rec home vs homecare. CM requested Inpt rehab eval order from MD. HUYNH to follow. Date Signed: 03/25/2019 01:25 PM Electronically Signed By:ERIN Stephen
--- NOTE | 2019-03-25 15:07 | PDMN ---
Medical Necessity Medical necessity: Pt meets IP criteria per & MCG M-282; est los >2 mn for eval/tx of pneumonia w/acute encephalopathy & restless activity possibly r/t stroke or seizure; admit to SDU for further workup/monitoring, IVFs & IV abx; per H&P & order 03/23/19
[2019-03-25] MEDS: BACLOFEN 10 MG TAB PO SCH ×2 (15:09→21:11)
[2019-03-25] MEDS: GABAPENTIN 300 MG CAP PO SCH ×2 (15:09→21:11)
[2019-03-25] MEDS: MELATONIN 3 MG TAB PO SCH (22:24)
[2019-03-25] MEDS: hydrALAZINE 20 MG/ML VIAL IVP PRN (22:25)
[2019-03-26] MEDS: traMADol 50 MG TAB PO PRN ×4 (01:34→20:59)
[2019-03-26] MEDS: HYDROmorphONE/DILAUDID 1 MG/ML INJ IVP PRN ×2 (05:19→15:57)
[2019-03-26] MEDS ORDERED: POTASSIUM CL 10 MEQ TAB PO ONE ×2 (07:22→21:06)
[2019-03-26] MEDS: NS 1,000 ML IV SCH ×2 (08:07→23:48)
[2019-03-26] MEDS: amLODIPine BESYLATE 5 MG TAB PO SCH (08:25)
[2019-03-26] MEDS: BACLOFEN 10 MG TAB PO SCH ×3 (08:25→21:00)
[2019-03-26] MEDS: FLUoxetine 20 MG CAP PO SCH (08:26)
[2019-03-26] MEDS: DOXYCYCLINE INJ 100 MG in NS 250 ML IV SCH ×2 (08:26→21:02)
[2019-03-26] MEDS: DULoxetine 30 MG CAP PO SCH (08:26)
[2019-03-26] MEDS: GABAPENTIN 300 MG CAP PO SCH ×3 (08:26→21:00)
[2019-03-26] MEDS: ENOXAPARIN 40 MG/0.4 ML SYR SC SCH (08:26)
[2019-03-26] MEDS ORDERED: ONDANSETRON 4 MG/2 ML VIAL IVP PRN (10:26)
--- NOTE | 2019-03-26 10:49 | ASMTCMCOM ---
CM Note CM Note Notes: CM spoke to Dr. Haynes about this case. Pt is recommending HC and OT is recommending inpatient rehab. CM spoke to Shantal / [facility] inpatient rehab and they do not have any beds at this time. CM met w/ pt and introduced self. Pt would like to have HC services set up. Referral sent to [facility]. [facility] is able to accept. CM confirmed pts address, phone number and PCP info. CM left a msg for pts son Jalil and pts daughter Gisella to go over recommendations. CM called [facility] to tell them that pt will most likely be discharging back to them with [facility]. CM to follow. Plan: BC; PT, OT Date Signed: 03/26/2019 10:47 AM Electronically Signed By:ERIN Julien
--- NOTE | 2019-03-26 14:46 | HOSPPROG ---
Hospitalist Progress Note Assessment/Plan: 74 yo F found down w resolving toxic metabolic encephalopathy 74F found down and confused with a R sided pna. It is possible the pneumonia caused her confusion, but also possible something else happened such as a seizure which caused her to aspirate. encephalopathy, suspect metabolic - improving - also possible this is toxic given her medication list; will decrease her baclofen but this needs to be followed closely pneumonia - cont rocephin/doxy - legionella, strep pna pending imaging underwhelming likely aspiration event complete 5 dyas abx severe sepsis d/t pna with lactic acidosis and encephalopathy septic physiology has resolved falls: has had multiple falls she notes her home is "cluttered" in independent living reasonable to follow on 24 hours of telemetry although low suspicion for cardiac syncope ekg on admit normal (interp by me QTc prolongation chronic back pain htn - home meds proph :lmwh dispo: inpt Subjective: cxr's reviewed/interp by me. alert and oriented today Objective: Vital Signs Temp Pulse Resp BP Pulse Ox 36.6 C 89 16 152/91 H 93 03/26/19 07:12 03/26/19 07:12 03/26/19 07:12 03/26/19 10:10 03/26/19 07:12 Laboratory Results 03/25/19 04:42 03/26/19 04:22 03/25/19 03/26/19 03/27/19 05:59 05:59 05:59 Intake Total 2586 1602 Output Total 800 1650 Balance 1786 -48 PT 12.8 SEC (12.0-15.0) 03/23/19 21:00 INR 1.00 (0.83-1.16) 03/23/19 21:00 - Physical Exam Constitutional: no apparent distress, appears nourished Eyes: PERRL, anicteric sclera Ears, Nose, Mouth, Throat: moist mucous membranes, hearing normal Cardiovascular: regular rate and rhythym, no murmur, rub, or gallop, No systolic murmur Respiratory: no respiratory distress, no rales or rhonchi Gastrointestinal: normoactive bowel sounds, soft, non-tender abdomen Genitourinary: No roman in urethra Skin: warm, normal color Musculoskeletal: full muscle strength Neurologic: AAOx3 ICD10 Worksheet Patient Problems: Problems Problem Status Onset Altered mental status Acute Leukocytosis Acute Pneumonia Acute Acute kidney injury Acute Anxiety reaction Acute Dehydration Acute Diarrhea Acute Insomnia Acute Left rib fracture Acute Renal failure Acute Vomiting and diarrhea Acute
[2019-03-26] MEDS: MELATONIN 3 MG TAB PO SCH (21:00)
[2019-03-27] MEDS: traMADol 50 MG TAB PO PRN ×4 (02:34→20:43)
[2019-03-27] MEDS: HYDROmorphONE/DILAUDID 1 MG/ML INJ IVP PRN (03:05)
[2019-03-27] MEDS: BACLOFEN 10 MG TAB PO SCH ×3 (08:31→21:04)
[2019-03-27] MEDS: amLODIPine BESYLATE 5 MG TAB PO SCH (08:32)
[2019-03-27] MEDS: GABAPENTIN 300 MG CAP PO SCH ×3 (08:32→21:04)
[2019-03-27] MEDS: ENOXAPARIN 40 MG/0.4 ML SYR SC SCH (08:32)
[2019-03-27] MEDS: DULoxetine 30 MG CAP PO SCH (08:32)
[2019-03-27] MEDS: FLUoxetine 20 MG CAP PO SCH (08:32)
[2019-03-27] MEDS: DOXYCYCLINE INJ 100 MG in NS 250 ML IV SCH ×2 (08:34→21:39)
--- NOTE | 2019-03-27 10:20 | ASMTCMCOM ---
CM Note CM Note Notes: CM spoke to Maximino this morning and he was able to convince pt to go to SNF and inpatient rehab. CM sent over several referrals per his request. Pt worked w/ PT/OT this AM and they are both recommending home w/ HC. Pt would like to go home w/ HC instead of going to SNF or inpatient rehab. CM left a msg for Maximino to give him the update. CM to follow. Plan: [facility]; PT, OT, RN Date Signed: 03/27/2019 10:19 AM Electronically Signed By:ERIN Julien
[2019-03-27] MEDS: hydrALAZINE 20 MG/ML VIAL IVP PRN (11:34)
[2019-03-27] MEDS: NS 1,000 ML IV SCH (11:37)
--- NOTE | 2019-03-27 13:00 | HOSPPROG ---
Hospitalist Progress Note Assessment/Plan: 74 yo F found down w resolving toxic metabolic encephalopathy 74F found down and confused with a R sided pna. It is possible the pneumonia caused her confusion, but also possible something else happened such as a seizure which caused her to aspirate. encephalopathy, suspect metabolic - improving - also possible this is toxic given her medication list; will decrease her baclofen but this needs to be followed closely pneumonia - cont rocephin/doxy - legionella neg, strep pending imaging underwhelming likely aspiration event complete 5 days abx; today is day 4 severe sepsis d/t pna with lactic acidosis and encephalopathy septic physiology has resolved falls: has had multiple falls she notes her home is "cluttered" in independent living interestingly, she says today (03/27) that her home is not cluttered 24 hours of telemetyry reveal no events ekg on admit normal (interp by me QTc prolongation chronic back pain htn - home meds proph :lmwh dispo: inpt Subjective: more alert. no events telemetry Objective: Vital Signs Temp Pulse Resp BP Pulse Ox 36.5 C 78 16 138/95 H 95 03/27/19 11:11 03/27/19 12:07 03/27/19 11:11 03/27/19 12:07 03/27/19 11:11 Laboratory Results 03/25/19 04:42 03/27/19 04:30 03/26/19 03/27/19 03/28/19 05:59 05:59 05:59 Intake Total 1602 1000 Output Total 1650 Balance -48 1000 PT 12.8 SEC (12.0-15.0) 03/23/19 21:00 INR 1.00 (0.83-1.16) 03/23/19 21:00 - Physical Exam Constitutional: no apparent distress, appears nourished Eyes: PERRL, anicteric sclera Ears, Nose, Mouth, Throat: moist mucous membranes, hearing normal Cardiovascular: regular rate and rhythym, no murmur, rub, or gallop Respiratory: no respiratory distress, no rales or rhonchi Gastrointestinal: normoactive bowel sounds, soft, non-tender abdomen Genitourinary: No roman in urethra Skin: warm, normal color Musculoskeletal: full muscle strength Neurologic: AAOx3 ICD10 Worksheet Patient Problems: Problems Problem Status Onset Altered mental status Acute Leukocytosis Acute Pneumonia Acute Acute kidney injury Acute Anxiety reaction Acute Dehydration Acute Diarrhea Acute Insomnia Acute Left rib fracture Acute Renal failure Acute Vomiting and diarrhea Acute
[2019-03-27] MEDS: MELATONIN 3 MG TAB PO SCH (21:04)
[2019-03-27] MEDS ORDERED: POTASSIUM CL 10 MEQ TAB PO ONE (23:20)
[2019-03-28] MEDS ORDERED: HYDROmorphONE/DILAUDID 1 MG/ML INJ IVP ONE (00:22)
[2019-03-28] MEDS: traMADol 50 MG TAB PO PRN ×2 (05:43→13:06)
[2019-03-28 07:51] VITALS: BP 160/78
[2019-03-28] MEDS: ENOXAPARIN 40 MG/0.4 ML SYR SC SCH (09:24)
[2019-03-28] MEDS: amLODIPine BESYLATE 5 MG TAB PO SCH (09:24)
[2019-03-28] MEDS: GABAPENTIN 300 MG CAP PO SCH (09:24)
[2019-03-28] MEDS: BACLOFEN 10 MG TAB PO SCH (09:24)
[2019-03-28] MEDS: FLUoxetine 20 MG CAP PO SCH (09:24)
[2019-03-28] MEDS ORDERED: POTASSIUM CL 10 MEQ TAB PO ONE (09:51)
--- NOTE | 2019-03-28 11:09 | PDIAF ---
- Diagnosis Diagnosis: PNA Code Status: Full Code - Medication Management Discharge Medications: electronically signed and located in the Home Medication List. PICC Care - Routine: N/A - Orders Services needed: Home Care, Registered Nurse, Master Four Slide Machine Setter, Physical Therapy, Occupational Therapy Home Care Face to Face: I certify that this patient was under my care and that I had the required [id number] encounter meeting the encounter requirements on the discharge day. My findings support the fact that the patient is homebound as defined in Home Care Face to Face Continued: CMS Chapter 7 Medicare Benefits Manual 30.1.1 , The condition of the patient is such that there exists a normal inability to leave home and consequently, leaving home would require a considerable and taxing effort. Isolation Type: None Diet Recommendation: no restrictions on diet Diet Texture: Regular Texture Diet, Thin Liquids, Meds Whole w/Liquids - Follow Up Care Current Providers and Referrals: Patient,NotPresent [Unknown] - As per Instructions
[2019-03-28] MEDS: DOXYCYCLINE INJ 100 MG in NS 250 ML IV SCH (12:25)
--- NOTE | 2019-03-28 12:27 | ASMTLACE ---
[place] Length of stay for Answers: 4-6 days current admission Acuity / Level of Answers: Yes Care: Did the patient have an inpatient admission? Comorbidities - select Answers: Other Notes: HTN all that apply # of Emergency department Answers: 5-8 visits in the last 6 months Social determinants Answers: Mental health diagnosis (anxiety, depression, pers onality disorders, etc.) Score: 15 Date Signed: 03/28/2019 12:26 PM Electronically Signed By:Anjali Friedmna RN
--- NOTE | 2019-03-28 12:34 | ASMTDCNOTE ---
Case Management Discharge Discharge Order Complete? Answers: Yes Patient to Obtain Answers: Independently Medications Transportation Arranged Answers: Family/Friends Faxed Final Orders Answers: Yes Agency/Facility Transfer Answers: Yes Report Printed & Faxed to Receiving Agency Family Notified Answers: Yes Discharge Comments Notes: D/w RUG SIZER, final orders in chart. Stephanie at [facility] notified, RN to call report. CM called pt's son Maximino who will pick her up between 1-2pm. CM gave pt clothes for discharge. Date Signed: 03/28/2019 12:32 PM Electronically Signed By:Anjali Friedman RN
--- NOTE | 2019-03-28 14:07 | ASMTCMCOM ---
CM Note CM Note Notes: Update, spoke w/son who came to pick pt up. He shared with CM that pt abuses opiates, he tries to make sure she is ok. He has taken her car away and states she has burned her bridges with his other siblings. CM checked pt's admission tox screen, which was negative. Discussed matter with Stephanie at [facility] and they will evaluate pt's safety at home. Date Signed: 03/28/2019 01:50 PM Electronically Signed By:Anjali Friedman RN
--- NOTE | 2019-03-28 16:35 | ASDISCHSUM ---
Discharge Information Plan Status:Home with Home Health Medically Cleared to Leave: Discharge Date:03/28/2019 01:40 PM CM D/C Disposition:Home Health Service ADT D/C Disposition:Home Health Service Projected Discharge Date:03/26/2019 11:00 AM Transportation at D/C:Family Discharge Delay Reason: Follow-Up Date:03/26/2019 11:00 AM Discharge Slot: Final Diagnosis: Placement Information Referral Type:*Home Health Care Services Referral ID:[id number] Provider Name:[facility] Address 1:[address] [address] Phone Number: Address 2: Fax Number: [facility]:[place] Selection Factors: State:[place] Referral Type:[facility] Referral ID:[id number] Provider Name: Address 1: Phone Number: Address 2: Fax Number: City: Selection Factors: State: Referral Type:*Correction/SNF Referral ID:[id number] Provider Name: Address 1: Phone Number: Address 2: Fax Number: [facility]: Selection Factors: State: Patient Contact Information Contact Name:NHUNG Relationship:Son Address[address] Work Phone: City:[place] Alternate Phone: [facility]/Zip Code:[place] Email: Financial Information Financial Class:Medicare Primary Plan Desc:MEDICARE INPATIENT Primary Plan Number:[id number] Secondary Plan Desc:MARCI/MAYNOR SUPPLEMENT Secondary Plan Number:[id number] Assessment Information LACE LACE Length of stay for Answers: 4-6 days current admission Acuity / Level of Answers: Yes Care: Did the patient have an inpatient admission? Comorbidities - select Answers: Other Notes: HTN all that apply # of Emergency department Answers: 5-8 visits in the last 6 months Social determinants Answers: Mental health diagnosis (anxiety, depression, pers onality disorders, etc.) Score: 15 Date Signed: 03/28/2019 12:26 PM Electronically Signed By:Anjali Friedman RN [facility] CM Progress Note CM Note CM Note Notes: Patient admitted after being found at her apartment at [facility] with AMS. She has a R-sided PNA, unclear if this is what caused her confusion. She also has a hx of chronic pain, anxiety and depression and has been seen here 7 times in the last 6 months. She lives independently at [facility]. SELIN Michelle spoke w her son Jalil who is out of town. I called her daughter Gisella who didn't answer. Discharge needs TBD, although patient usually discharges back to with no services. CM available for any needs. Date Signed: 03/24/2019 11:24 AM Electronically Signed By:Paola Tobar RN [facility] CM Progress Note CM Note CM Note Notes: Pt was transfered to . CIVIL ENGINEERING ASSISTANT/OT recommending inpatient rehab, PT rec home vs homecare. CM requested Inpt rehab eval order from MD. HUYNH to follow. Date Signed: 03/25/2019 01:25 PM Electronically Signed By:ERIN Stephen [facility] CM Progress Note CM Note CM Note Notes: CM spoke to Dr. Haynes about this case. Pt is recommending HC and OT is recommending inpatient rehab. CM spoke to Shantal w/ [facility] inpatient rehab and they do not have any beds at this time. CM met w/ pt and introduced self. Pt would like to have HC services set up. Referral sent to [facility]. [facility] is able to accept. CM confirmed pts address, phone number and PCP info. CM left a msg for pts son Jalil and pts daughter Gisella to go over recommendations. CM called [facility] to tell them that pt will most likely be discharging back to them with [facility]. CM to follow. Plan: [facility]; PT, OT Date Signed: 03/26/2019 10:47 AM Electronically Signed By:ERIN Julien [facility] Progress Note CM Note CM Note Notes: CM spoke to Maximino this morning and he was able to convince pt to go to SNF and inpatient rehab. CM sent over several referrals per his request. Pt worked w/ PT/OT this AM and they are both recommending home w/ HC. Pt would like to go home w/ HC instead of going to SNF or inpatient rehab. CM left a msg for Maximino to give him the update. CM to follow. Plan: [facility]; PT, OT, RN Date Signed: 03/27/2019 10:19 AM Electronically Signed By:ERIN Julien Case Management Discharge Plan Note Case Management Discharge Discharge Order Complete? Answers: Yes Patient to Obtain Answers: Independently Medications Transportation Arranged Answers: Family/Friends Faxed Final Orders Answers: Yes Agency/Facility Transfer Answers: Yes Report Printed & Faxed to Receiving Agency Family Notified Answers: Yes Discharge Comments Notes: D/w FOUNDER & CEO, final orders in chart. Stephanie at [facility] notified, SELIN to call report. LINO called pt's son Maximino who will pick her up between 1-2pm. CM gave pt clothes for discharge. Date Signed: 03/28/2019 12:32 PM Electronically Signed By:Anjali Friedman RN [facility] Progress Note CM Note CM Note Notes: Update, spoke w/son who came to pick pt up. He shared with CM that pt abuses opiates, he tries to make sure she is ok. He has taken her car away and states she has burned her bridges with his other siblings. CM checked pt's admission tox screen, which was negative. Discussed matter with Stephanie at [facility] and they will evaluate pt's safety at home. Date Signed: 03/28/2019 01:50 PM Electronically Signed By:Anjali Friedman RN Intervention Information Intervention Type:*IM-Signed Date of Service:03/28/2019 11:58 AM Patient Type:Inpatient Staff Member:Ellen Arita Hours: Discipline: Severity: Comment:
--- NOTE | 2019-03-28 21:44 | GDS ---
[f rep st] DISCHARGE SUMMARY DISCHARGE DIAGNOSES: 1. Encephalopathy, likely metabolic. 2. Pneumonia. 3. Severe sepsis. 4. Falls. 5. Chronic back pain. PHYSICAL EXAM: VITAL SIGNS: The patient is afebrile at 37, pulse is 61, respiratory rate 16, blood pressure is 160/78. She is saturating 97% on 2 L, greater than 90% on room air. I have seen and tony luated the patient on the day of discharge. HOSPITAL COURSE: 1. The patient is a 74-year-old female who presented to the emergency room after being found down. She was evaluated and diagnosed with metabolic encephalopathy. This has resolved. 2. Pneumonia. She received IV antibiotic therapy during this hospitalization and has been transitio ally to oral therapy at the time of disposition. 3. Severe sepsis. This is secondary to the patient's pneumonia and has resolved. 4. Falls. The patient's family confirms that the patient has issues with narcotics. This is likely part of the patient's falls at baseline. DISPOSITION: She will be discharged home with her family. There are no pending studies. DISCHARGE MEDICATIONS: Please refer to EMR form. The patient tells me that she had stopped taking a ll of her medications prior to coming to the hospital because she ran out of money. I have re-initia bhanu her medications at the time of disposition and provided prescriptions for them prior to her disch arge. Levaquin is the only new medication. FOLLOWUP: Followup will be with her primary care physician. I have discussed the patient's disposit ion with Case Management, who is assisting with her social issues. She will receive home health care , psychiatric social worker supervisor, physical therapist and occupational therapist in the outpatient setting. TIME SPENT WITH PATIENT: I have spent greater than 35 minutes in the care, coordination, and managem ent of the patient's disposition. /[id number]/MODL
== END 2019-03-28 13:40 | disposition home health service (06) | DRG 871 ==
LOC: EDUNIT# → F2N 03-24 00:35 → F3E 03-25 10:51
PROVIDERS: ADMIT Family Medicine; ATTEND Family Medicine
DX: A41.9 Sepsis, unspecified organism (principal); R65.20 Severe sepsis without septic shock; J18.9 Pneumonia, unspecified organism; G93.41 Metabolic encephalopathy; Z91.81 History of falling; I10 Essential (primary) hypertension; M19.90 Unspecified osteoarthritis, unspecified site; G89.29 Other chronic pain; F41.8 Other specified anxiety disorders
CPT/HCPCS: 80305; 84484-ER; 87449-90; 92507-GN; 92523-GN; 92526-GN; 92610-GN; 97116-GP; 97161-GP; 97166-GO; 97530-GO; 97535-GO; G0480; J0360; J0456; J0692; J0696; J1170; J1650; J2060; J2405

== ENCOUNTER 2019-03-30 20:21 | Inpatient (IN) | payer OTHER, MEDICARE | END 2019-04-03 14:55 | LOC: F3N 23:13 ==